=== PATIENT | female | born 1940 | race Caucasian/White ===

== ENCOUNTER → 2019-06-14 | Outpatient (REF) | payer MEDICARE, BC ==
[~2019-06-14] MED LIST: AMLO5TAB6 PO; ASPI81TA85 PO; BIMA01SOL OU; CALC1TAB27 PO; FERR32TA PO; HYDR25TAB PO; KETO2CR TOP; LEVO750T13 PO; PROT0.1O TOP; QUIN40TA26 PO; ROSU40TA4 PO; SYNT88TA2 PO; VITMTA PO
== END ==
LOC: M LAB LCGH 14:35
PROVIDERS: ATTEND Surgery
DX: K82.4 Cholesterolosis of gallbladder (principal)

== ENCOUNTER → 2019-06-14 | Outpatient (REF) | payer MEDICARE, BC | LOC: M LAB LCGH 12:47 | PROVIDERS: ATTEND Surgery | DX: K80.18 Calculus of gallbladder with other cholecystitis without obstruction (principal) ==

== ENCOUNTER 2019-06-15 11:30 | Inpatient (IN) | payer MEDICARE, BC ==
[~2019-06-15] VITALS: Ht 157.5 cm; Wt 76.5 kg
[2019-06-15 12:50] VITALS: BP 162/89
[2019-06-15] MEDS ORDERED: PROT0.1O TOP (13:24)
[2019-06-15] MEDS ORDERED: ROSU40TA4 PO (13:24)
[2019-06-15] MEDS ORDERED: VITMTA PO (13:24)
[2019-06-15] MEDS ORDERED: SYNT88TA2 PO (13:24)
[2019-06-15] MEDS ORDERED: KETO2CR TOP (13:24)
[2019-06-15] MEDS ORDERED: AMLO5TAB6 PO (13:24)
[2019-06-15] MEDS ORDERED: ASPI81TA85 PO (13:24)
[2019-06-15] MEDS ORDERED: BIMA01SOL OU (13:24)
[2019-06-15] MEDS ORDERED: QUIN40TA26 PO (13:24)
[2019-06-15] MEDS ORDERED: HYDR25TAB PO (13:24)
[2019-06-15] MEDS ORDERED: FERR32TA PO (13:24)
[2019-06-15] MEDS ORDERED: CALC1TAB27 PO (13:24)
[2019-06-15] MEDS ORDERED: LEVO750T13 PO (13:28)
[2019-06-15] MEDS ORDERED: NS 1,000 ML IV SCH (13:30)
--- NOTE | 2019-06-15 13:31 | HPEPDOC ---
[facility] Medical History & Physical Date of Admission Jun 15, 2019 Date of Service: Jun 15, 2019 History and Physical CHIEF COMPLAINT: pancreatic duct stone HISTORY OF PRESENT ILLNESS: 78 yo female transferred from [facility] for GI services for ERCP. Patient originally presented for abdominal pain, found to have cholecystitis and is now POD #1 for lap choly. Procedure revealed multiple pancreatic duct stones. Patient currently notes mild abdominal pain 3/10, slight worse at surgical site. Denies chest pain, shortness of breath, N/V/D. PAST MEDICAL HISTORY: HTN DM hypothyroidism HLD glaucoma PAST SURGICAL HISTORY: MELIDA lap choly - 06/14/19 ALLERGIES: Please see below. REVIEW OF SYSTEMS: Negative except as per HPI. HOME MEDICATIONS: Please see below. PHYSICAL EXAMINATION: VITAL SIGNS: See below General: NAD, lying comfortably in bed, in good spirits, family at bedside HEENT: NC/AT, EOMI, PERRL Lungs: CTA B/L Heart: +S1S2, RRR, systolic murmur Abd: soft, NT, +BS Ext: no edema Psych: AAOx3 LABORATORY DATA: See below. MICROBIOLOGY: Please see below. ASSESSMENT: 78 yo female originally presented at outside facility for abdominal pain, underwent lap choly 06/14/19, transferred to [facility] for ERCP for pancreatic duct stones. #pancreatic duct stones - GI c/s pending - NPO/IVF - plan for ERCP #HTN #DM #hypothyroidism #glaucoma #DVT prophylaxis Home Medications Scheduled Amlodipine Besylate (Amlodipine Besylate) 5 Mg Tablet, 5 MG PO DAILY Aspirin (Aspir 81) 81 Mg Tablet.dr, 81 MG PO 3XW MON/TUE/FRI WITH DINNER Bimatoprost (Lumigan) 0.01% 2.5ML Drops, 1 DROP OU QHS Calcium Carbonate/Vitamin D3 (Calcium 600-Vit D3 800 Tablet) 1 Each Tablet, 1 TAB PO DAILY TAKES AT 1600 Ferrous Gluconate (Ferrous Gluconate) 324 Mg Tablet, 324 MG PO DAILY Hydrochlorothiazide (Hydrochlorothiazide) 25 Mg Tablet, 25 MG PO DAILY Levothyroxine Sodium (Synthroid) 88 Mcg Tablet, 88 MCG PO QHS Multivitamins (Thera M Plus Tablet) 1 Each Tablet, 1 TAB PO DAILY TAKES AT 1600 Quinapril HCl (Quinapril HCl) 40 Mg Tablet, 40 MG PO QHS Rosuvastatin Calcium (Rosuvastatin Calcium) 40 Mg Tablet, 40 MG PO QHS Scheduled PRN Ketoconazole (Ketoconazole) 15 Gm Cream..g., 1 APLCT TOP DAILY PRN for ITCHING APPLY TO GROIN Tacrolimus (Protopic) 100 Gm Oint...g., 1 APLCT TOP DAILY PRN for FLARE APPLY TO NOSE/FOREHEAD Allergies Coded Allergies: atorvastatin (Verified Adverse Reaction, Unknown, INCREASED LIVER ENZYMES, GI UPSET, 06/15/19) A-FIB/CHADSVASC A-FIB History Current/History of A-Fib/PAF?: No Current PO Anticoag Therapy: No SUSIE ZAMBRANO MD Jun 15, 2019 13:31
[2019-06-15 14:00] VITALS: BP 159/88
[2019-06-15 15:06] LABS: HEMATOCRIT 36.2 % (36.0-47.0); HEMOGLOBIN 11.1 g/dl (12.0-15.5); MEAN CORPUSCULAR HEMOGLOBIN 28.8 pg (27.0-33.0); MEAN CORPUSCULAR HGB CONC 30.7 g/dl (32.0-36.5); PLATELET COUNT, AUTOMATED 162 10^3/uL (150-450); RED BLOOD COUNT 3.85 10^6/uL (4.00-5.40); WHITE BLOOD COUNT 7.1 10^3/uL (4.0-10.0)
[2019-06-15] MEDS ORDERED: MORPHINE 2 MG/ML 1ML VIAL (J2270) IV PRN (15:15)
[2019-06-15 15:17] LABS: INR 1.14; PROTHROMBIN TIME 14.3 SECONDS (11.8-14.0)
[2019-06-15 15:30] LABS: ALBUMIN 3.3 GM/DL (3.2-5.2); ALT/SGPT 248 U/L (12-78); BILIRUBIN,TOTAL 4.8 MG/DL (0.2-1.0); BLOOD UREA NITROGEN 7 MG/DL (7-18); CALCIUM LEVEL 8.4 MG/DL (8.8-10.2); CARBON DIOXIDE LEVEL 25 MEQ/L (21-32); CHLORIDE LEVEL 109 MEQ/L (98-107); CREATININE FOR GFR 0.66 MG/DL (0.55-1.30); GLOMERULAR FILTRATION RATE > 60.0 (>39); GLUCOSE, FASTING 149 MG/DL (70-100); POTASSIUM SERUM 3.3 MEQ/L (3.5-5.1); SODIUM LEVEL 140 MEQ/L (136-145); TOTAL PROTEIN 6.3 GM/DL (6.4-8.2)
[2019-06-15] MEDS ORDERED: ANEXSIA, NORCO 7.5MG/325MG TABLET(HYDROCODONE/APAP) PO PRN (15:45)
[2019-06-15] MEDS: ACETAMINOPHEN TAB 650MG DOSE (2X325MG) PO PRN (15:50)
[2019-06-15 19:36] LABS: BASO % 0.2 % (0.0-1.0); EOS # 0.1 10^3/uL (0.0-0.5); EOS % 0.7 % (0.0-3.0); HEMOGLOBIN 11.4 g/dl (12.0-15.5); LYMPH # 1.6 10^3/uL (1.5-5.0); MEAN CORPUSCULAR HEMOGLOBIN 28.6 pg (27.0-33.0); MEAN CORPUSCULAR HGB CONC 30.8 g/dl (32.0-36.5); MONO # 0.6 10^3/uL (0.0-0.8); NEUTROPHILS # 6.4 10^3/uL (1.5-8.5); NEUTROPHILS % 73.5 % (36.0-66.0); PLATELET COUNT, AUTOMATED 194 10^3/uL (150-450); RED BLOOD COUNT 3.98 10^6/uL (4.00-5.40); WHITE BLOOD COUNT 8.7 10^3/uL (4.0-10.0)
--- NOTE | 2019-06-15 19:48 | CR.PDOC ---
General Date of Consultation: Jun 15, 2019 Referring Provider: SUSIE ZAMBRANO MD Attending Physician: FRANTZ SENA MD Consultation Primary physician/ hospitalist: Dr. Zambrano Reason for consult: abnormal liver tests and possible CBD stones. HPI: 78 year old female patient with DM type II, HTN, was transferred from [facility] post cholecystectomy for suspected CBD stones. Patient reports her symptoms started 4 days ago with right upper quadrant, and epigastric and chest pain, after her obey ch, for which she went to [facility], where the pain continues, without any nausea or vomiting, subsequently she had Cholecystectomy on Tuesday and she is transferred today to [facility] for possible CBD stones. Patient upon examination, reports her abdominal pain is slightly better since started, but still ex periencing same type pain while moving, especially while getting out of bed. Patient denies any fever or chills but there was one documented fever ( transiently). Patient denies any nausea and vomiting. Pertinent negative GI symptoms: Patient denies fever, sick contacts, recent travel, nausea, vomiting, diarrhea, loss of appetite, early satiety or unintentional weight loss. No history of hematemesis, melena or hematochezia. Patient reports regular bowel movements. Review of Systems: GI: as stated above CVS: No chest pain, No palpitations, No leg swelling. RS: No Shortness of breath, No Wheezing, no cough [employer]: No dizziness, No motor weakness, No sensory problems Hematology: No bruising, No gum bleeding, Musculoskeletal: No joint pain, ambulating well. Skin: No rash : No hematuria, No burning sensation of the urine ENT: No ear discharge/ pain, No dysphagia. Eyes: No photophobia. Jaundice Home medications: reviewed. Antithrombotic agents - None Medical h/o: As above. Surgical h/o: None on abdomen. Social h/o: Alcohol - Denies , smoking - Denies , IVDA/ drugs - Denies . Family h/o of GI cancers - None Prior GI evaluations: None In [facility] Exam: Vitals: reviewed General: Alert and oriented x 3, not in distress HEENT: NO pallor, no icterus. Normal oropharynx, NO cervical lymph nodes. Chest: symmetric with bilateral clear air entry, CVS: S1, S2 heard, normal, no murmurs . Abdomen: non-distended, no surgical scars, soft, non-tender, no palpable masses, normal bowel sounds heard. Rectal exam: Patient refused / Deferred at this time in view of scheduled colonoscopy. Extremities: no pedal edema, pulses palpable. [employer]: no focal motor or sensory deficits. Moves all extremities Skin: no rash. Labs: reviewed. Impression: - Right upper quadrant pain and epigastric pain s/p cholecystectomy but worsening bilirubin levels and concern for retained CBD stones -- Needs further evaluation. Recommendations: - Patient educated about the test results, possible differential diagnoses and All questions answered. - Will obtain repeat labs and amylase and lipase. - Will obtain US abdomen limited of right upper quadrant. - Continue IV hydration -- Prefer ringers lactate. - Depending on clinical course and if any signs of sepsis, consider starting empiric antibiotics. - Will Keep NPO. - Patient is scheduled for ERCP tomorrow based on the above results. - The procedure, indications, risks (including pancreatitis, its complications, bleeding, perforation, infection, hypotension, respiratory depression, allergy, need for endotracheal intubation, surgery, colostomy, cardiac arrest, even ), benefits, limitations (e.g., missing a lesion), and all other alternatives (including no intervention) were explained to the patient, her family members in detail. Printed material provided. Patient verbalized understanding and agreed for the procedure. Plan of care discussed with patient and primary team. Patient verbalized understanding and agreed with the plan. Vital Signs/I&O Vital Signs Date Time Temp Pulse Resp B/P (MAP) Pulse Ox O2 Delivery O2 Flow Rate FiO2 06/15/19 16:41 99.0 06/15/19 14:00 84 17 159/88 (111) 95 Room Air Laboratory Data Labs 24H Laboratory Tests 2 06/15/19 14:52: Nucleated Red Blood Cells % (auto) 0.0, Prothrombin Time 14.3H, Prothromb Time International Ratio 1.14, Anion Gap 6L, Glomerular Filtration Rate > 60.0, Calcium Level 8.4L, Total Bilirubin 4.8H, Aspartate Amino Transf (AST/SGOT) 219H, Alanine Aminotransferase (ALT/SGPT) 248H, Alkaline Phosphatase 170H, Total Protein 6.3L, Albumin 3.3, Albumin/Globulin Ratio 1.10 06/15/19 19:24: Nucleated Red Blood Cells % (auto) 0.0, Immature Granulocyte % (Auto) 0.6, Neutrophils (%) (Auto) 73.5H, Lymphocytes (%) (Auto) 18.0L, Monocytes (%) (Auto) 7.0H, Eosinophils (%) (Auto) 0.7, Basophils (%) (Auto) 0.2, Neutrophils # (Auto) 6.4, Lymphocytes # (Auto) 1.6, Monocytes # (Auto) 0.6, Eosinophils # (Auto) 0.1, Basophils # (Auto) 0.0 CBC/BMP Laboratory Tests 06/15/19 14:52 06/15/19 19:24 Allergies Coded Allergies: atorvastatin (Verified Adverse Reaction, Intermediate, INCREASED LIVER ENZYMES, GI UPSET, 06/15/19) Home Medications Scheduled Amlodipine Besylate (Amlodipine Besylate) 5 Mg Tablet, 5 MG PO DAILY, (Reported) Aspirin (Aspir 81) 81 Mg Tablet.dr, 81 MG PO 3XW, (Reported) MON/WED/FRI WITH DINNER Bimatoprost (Lumigan) 0.01% 2.5ML Drops, 1 DROP OU QHS, (Reported) Calcium Carbonate/Vitamin D3 (Calcium 600-Vit D3 800 Tablet) 1 Each Tablet, 1 TAB PO DAILY, (Reported) TAKES AT 1600 Ferrous Gluconate (Ferrous Gluconate) 324 Mg Tablet, 324 MG PO DAILY, (Reported) Hydrochlorothiazide (Hydrochlorothiazide) 25 Mg Tablet, 25 MG PO DAILY, (Reported) Levofloxacin (Levofloxacin) 750 Mg Tablet, 750 MG PO DAILY, (Reported) STARTED AT [facility] Levothyroxine Sodium (Synthroid) 88 Mcg Tablet, 88 MCG PO QHS, (Reported) Multivitamins (Thera M Plus Tablet) 1 Each Tablet, 1 TAB PO DAILY, (Reported) TAKES AT 1600 Quinapril HCl (Quinapril HCl) 40 Mg Tablet, 40 MG PO QHS, (Reported) Rosuvastatin Calcium (Rosuvastatin Calcium) 40 Mg Tablet, 40 MG PO QHS, (Reported) Scheduled PRN Ketoconazole (Ketoconazole) 15 Gm Cream..g., 1 APLCT TOP DAILY PRN for ITCHING, (Reported) APPLY TO GROIN Tacrolimus (Protopic) 100 Gm Oint...g., 1 APLCT TOP DAILY PRN for FLARE, (Reported) APPLY TO NOSE/FOREHEAD FRANTZ SENA MD Jun 15, 2019 19:48
[2019-06-15 20:01] LABS: ALBUMIN 3.3 GM/DL (3.2-5.2); BILIRUBIN,DIRECT 4.3 MG/DL (0.0-0.2); TOTAL PROTEIN 7.2 GM/DL (6.4-8.2)
--- NOTE | 2019-06-15 20:11 | REPVR ---
PROCEDURE INFORMATION: Exam: US Abdomen Limited, Right Upper Quadrant Exam date and time: 06/15/2019 6:43 PM Age: 78 years old Clinical indication: Abdominal pain; Epigastric; Prior surgery; Surgery date: Post-operative (0-2 days); Surgery type: Cholecystectomy yesterday; Additional info: Evaluate for biliary tree TECHNIQUE: Imaging protocol: Real-time ultrasound of the abdomen with image documentation. Examination was focused on the right upper quadrant. COMPARISON: No relevant prior studies available. FINDINGS: Liver: The liver is heterogenous. Gallbladder: Status post cholecystectomy. Common bile duct: The common bile duct measures 6 mm. Pancreas: The visualized pancreatic head and body is unremarkable. Right kidney measures 11 x 4.6 x 4.6 cm Right kidney: 10.1 x 2.2 x 6.4 cm hypoechoic structure superior to right kidney which may represent a adrenal adenoma/nodule Other findings: . Limited examination due to bowel gas. IMPRESSION: 1. Limited examination due to overlying bowel gas. 2. Status post cholecystectomy. Electronically signed by: Lawrence Cool On 06/15/2019 20:10:49 PM
[2019-06-15] MEDS: ROSUVASTATIN 10 MG TAB (CRESTOR) PO SCH (20:47)
[2019-06-15] MEDS: QUINAPRIL 20 MG TAB PO SCH (20:49)
[2019-06-15] MEDS: LR 1,000 ML IV SCH (20:50)
[2019-06-15] MEDS: LATANOPROST 0.005% OPHTH SOLN 2.5 ML OU SCH (20:50)
[2019-06-15 22:00] VITALS: BP 157/86
[2019-06-16] VITALS (8 sets, daily range): BP systolic 102–164; BP diastolic 58–85
[2019-06-16] MEDS: LevoFLOXacin 750 MG TABLET PO SCH (06:38)
[2019-06-16 06:49] LABS: BASO % 0.1 % (0.0-1.0); EOS # 0.1 10^3/uL (0.0-0.5); EOS % 1.2 % (0.0-3.0); HEMATOCRIT 30.1 % (36.0-47.0); HEMOGLOBIN 9.7 g/dl (12.0-15.5); LYMPH # 1.3 10^3/uL (1.5-5.0); LYMPH % 19.6 % (24.0-44.0); MEAN CORPUSCULAR HEMOGLOBIN 29.8 pg (27.0-33.0); MEAN CORPUSCULAR HGB CONC 32.2 g/dl (32.0-36.5); MEAN CORPUSCULAR VOLUME 92.3 fl (80.0-96.0); MONO # 0.6 10^3/uL (0.0-0.8); MONO % 8.2 % (0.0-5.0); NEUTROPHILS # 4.7 10^3/uL (1.5-8.5); NEUTROPHILS % 70.5 % (36.0-66.0); PLATELET COUNT, AUTOMATED 160 10^3/uL (150-450); RED BLOOD COUNT 3.26 10^6/uL (4.00-5.40); WHITE BLOOD COUNT 6.7 10^3/uL (4.0-10.0)
[2019-06-16] MEDS: LR 1,000 ML IV SCH ×2 (06:50→14:53)
[2019-06-16 07:17] LABS: ALBUMIN 2.6 GM/DL (3.2-5.2); ALT/SGPT 194 U/L (12-78); AMYLASE 43 U/L (25-115); BILIRUBIN,DIRECT 4.2 MG/DL (0.0-0.2); BILIRUBIN,TOTAL 4.9 MG/DL (0.2-1.0); BLOOD UREA NITROGEN 5 MG/DL (7-18); CALCIUM LEVEL 8.4 MG/DL (8.8-10.2); CARBON DIOXIDE LEVEL 26 MEQ/L (21-32); CHLORIDE LEVEL 107 MEQ/L (98-107); CREATININE FOR GFR 0.56 MG/DL (0.55-1.30); GLOMERULAR FILTRATION RATE > 60.0 (>39); GLUCOSE, FASTING 127 MG/DL (70-100); LIPASE 97 U/L (73-393); SODIUM LEVEL 141 MEQ/L (136-145); TOTAL PROTEIN 6.1 GM/DL (6.4-8.2)
[2019-06-16] MEDS: hydroCHLOROthiazide 25 MG TAB PO SCH (09:38)
[2019-06-16] MEDS: MULTIVITAMINS/MINERALS THERAP 1 TAB PO SCH (09:38)
[2019-06-16] MEDS: FERROUS GLUCONATE 324 MG TAB PO SCH (09:38)
[2019-06-16] MEDS: amLODIPine 5 MG TAB PO SCH (09:38)
[2019-06-16] MEDS: KCL 10MEQ/100ML SWI (KRUN) 10 MEQ in IV 1 EA IV SCH ×2 (09:44→14:59)
[2019-06-16] MEDS ORDERED: ONDANSETRON 4MG/2ML VIAL (J2405) As Ordered ONE (11:57)
[2019-06-16] MEDS ORDERED: METOCLOPRAMIDE INJ 10MG/2ML VIAL (J2765) As Ordered ONE (11:57)
[2019-06-16] MEDS ORDERED: ROCURONIUM BROMIDE 50 MG/5 ML VIAL As Ordered ONE (11:57)
[2019-06-16] MEDS ORDERED: dexameTHASONE 4 MG/ML 1ML VIAL (J1100) As Ordered ONE (11:57)
[2019-06-16] MEDS ORDERED: LIDOCAINE 2% INJ 100 MG/5 ML SDV (FOR ANES.) As Ordered ONE (11:57)
[2019-06-16] MEDS ORDERED: propofoL 200 MG/20 ML VIAL As Ordered ONE (11:57)
[2019-06-16] MEDS ORDERED: SUGAMMADEX SODIUM 500 MG/5 ML VIAL (BRIDION) As Ordered ONE (11:57)
[2019-06-16] MEDS ORDERED: fentaNYL 100 MCG/2 ML INJECTION (J3010) As Ordered ONE (11:57)
[2019-06-16] MEDS ORDERED: MIDAZOLAM INJ 2 MG/2 ML VIAL (J2250) As Ordered ONE (11:57)
[2019-06-16] MEDS ORDERED: ISOVUE-300 61% 50ML VIAL (Q9967) XX ONE (12:15)
[2019-06-16] MEDS ORDERED: LABETALOL HCL 100 MG/20 ML VIAL As Ordered ONE (12:28)
[2019-06-16] MEDS ORDERED: PHENYLephrine HCL 500 MCG/5 ML (100MCG/ML) SYRINGE (J2370) As Ordered ONE (12:56)
[2019-06-16] MEDS ORDERED: LR 1,000 ML IV SCH (13:30)
[2019-06-16] MEDS ORDERED: fentaNYL 100 MCG/2 ML INJECTION (J3010) IV PRN (13:30)
[2019-06-16] MEDS ORDERED: PERCOCET 5MG/325MG TAB PO PRN (13:30)
[2019-06-16] MEDS ORDERED: ONDANSETRON 4MG/2ML VIAL (J2405) IV PRN ×2 (13:30→16:15)
[2019-06-16] MEDS ORDERED: LR 1,000 ML IV ONE ×2 (13:30→13:45)
--- NOTE | 2019-06-16 13:30 | ROOR ---
Patient Name: Alka Schmitz Procedure Date: 06/16/2019 11:46 AM Date of : 1940 Age: 78 Room: Main OR Gender: Female Note Status: Finalized Procedure: ERCP Indications: Bile duct stone(s), Jaundice, Elevated liver enzymes Providers: Ravi Franco MD Referring MD: 2. Inpatient 2. Inpatient, KENYON HERRERA MD, Juancarlos Armenta Md Requesting Provider: Medicines: Monitored Anesthesia Care Complications: No immediate complications. Procedure: Pre-Anesthesia Assessment: - Prior to the procedure, a History and Physical was performed, and patient medications and allergies were reviewed. The patient is competent. The risks and benefits of the procedure and the sedation options and risks were discussed with the patient. All questions were answered and informed consent was obtained. Patient identification and proposed procedure were verified by the physician, the nurse and the anesthesiologist in the procedure room. Mental Status Examination: alert and oriented. Airway Examination: normal oropharyngeal airway and neck mobility. Respiratory Examination: clear to auscultation. Prophylactic Antibiotics: The patient does not require prophylactic antibiotics. Prior Anticoagulants: The patient has taken no previous anticoagulant or antiplatelet agents. ASA Grade Assessment: III - A patient with severe systemic disease. After reviewing the risks and benefits, the patient was deemed in satisfactory condition to undergo the procedure. The anesthesia plan was to use monitored anesthesia care (MAC). Immediately prior to administration of medications, the patient was re-assessed for adequacy to receive sedatives. The heart rate, respiratory rate, oxygen saturations, blood pressure, adequacy of pulmonary ventilation, and response to care were monitored throughout the procedure. The physical status of the patient was re-assessed after the procedure. The Duodenoscope was introduced through the mouth, and advanced to the duodenum and used to inject contrast into the bile duct. The ERCP was accomplished without difficulty. The patient tolerated the procedure well. Findings: The life educator film was normal. The esophagus was successfully intubated under direct vision without detailed examination of the pharynx, larynx, and associated structures, and upper GI tract. The upper GI tract was grossly normal. The major papilla was bulging. A 0.035 inch x 260 cm straight Hydra Jagwire was passed into the biliary tree. The short-nosed traction sphincterotome was passed over the guidewire and the bile duct was then deeply cannulated. Contrast was injected. I personally interpreted the bile duct images. Ductal flow of contrast was adequate. Image quality was adequate. Contrast extended to the entire biliary tree. The lower third of the main bile duct contained filling defect(s) thought to be a stone and sludge. The lower third of the main bile duct contained stenosis preventing free flow of contrast even after sphicterotomy and balloons sweeps, unclear if retained stone or edema from sphicterotomy. Biliary sphincterotomy was made with a monofilament traction (standard) sphincterotome using ERBE electrocautery. The sphincterotomy oozed blood. The biliary tree was swept with a 9 mm balloon starting at the bifurcation. Sludge was swept from the duct. All stones were removed. One 8.5 Fr by 7 cm plastic stent with a single external flap and a single internal flap was placed into the common bile duct. Bile flowed through the stent. The stent was in good position. Occlusion cholangiogram at the end of the procedure did not show any residual filling defects. Pancreatic duct was neither cannulated nor opacified. Impression: - The major papilla appeared to be bulging. - A filling defect consistent with a stone and sludge was seen on the cholangiogram. - Biliary duct stricture were found in the lower third of the main bile duct. The stricture were indeterminate. - Choledocholithiasis was found. Complete removal was accomplished by biliary sphincterotomy and balloon extraction. - A biliary sphincterotomy was performed. - The biliary tree was swept. - One plastic stent was placed into the common bile duct. Recommendation: - The patient will be observed post-procedure, until all discharge criteria are met. - Patient has a contact number available for emergencies. The signs and symptoms of potential delayed complications were discussed with the patient. Return to normal activities tomorrow. Written discharge instructions were provided to the patient. - [facility] to [facility] for [facility]. - Avoid aspirin and nonsteroidal anti-inflammatory medicines. - Clear liquid diet today, then advance as tolerated to high fiber diet. - Continue present medications. - Repeat ERCP in 3 months to remove stent. - Return to GI clinic in [facility] (address [address], [address], [place] [address]) in 4 -- 6 weeks. Please call GI clinic @ [phone] for apppointment date and time. - Return to primary care physician. Ravi Franco MD Ravi Franco MD 06/16/2019 1:30:13 PM Electronically signed by Ravi Franco MD Number of Addenda: 0 Note Initiated On: 06/16/2019 11:46 AM Estimated Blood Loss: Estimated blood loss was minimal.
[2019-06-16] MEDS ORDERED: KCL 10MEQ IN STERILE WATER 100ML As Ordered ONE (14:57)
[2019-06-16] MEDS ORDERED: GLUCOSE 4 GM CHEW TABLET PO PRN (17:45)
[2019-06-16] MEDS ORDERED: GLUCAGON FOR INJ 1 MG VIAL (J1610) SC PRN (17:45)
[2019-06-16] MEDS ORDERED: DEXTROSE 50% 50 ML SYRINGE IV PRN (17:45)
[2019-06-16] MEDS ORDERED: HumaLOG INSULIN (NovoLOG) PER UNIT SC SCH (18:00)
--- NOTE | 2019-06-16 18:15 | IPNPDOC ---
Date Seen The patient was seen on 06/16/19. Progress Note SUBJECTIVE: Alka was seen and examined this morning while sitting in a chair. Her IV just infiltrated prior to our visit and was subsequently moved to a new location. She reports epigastric, periumbilical and lower abdominal discomfort but no significant pain. She denies any nausea or vomiting and is currently NPO in preparation for an ERCP today. Patient denies fever, chills, night sweats, confusion, headache, chest pain or pressure, or shortness of breath at this time. OBJECTIVE PHYSICAL EXAMINATION: VITAL SIGNS: Please see below. GENERAL: Pleasant and interactive, elderly female seated comfortably in a chair at time of exam. Appears stated age. Well-developed and well- nourished. A&O x3. Multiple family members present in the room. HEENT: Normocephalic, atraumatic. Anicteric and noninjected sclera. Trachea is midline. CARDIOVASCULAR: Rate regular rhythm. S1, S2 auscultated. There is a 2/6 systolic murmur heard best at the left parasternal second intercostal space. RESPIRATORY: Clear to auscultation bilaterally, with no wheezes, crackles or rhonchi appreciated. ABDOMINAL: Soft, nondistended. There are bandages in place over surgical incisions with no active oozing or bleeding. Tenderness of lower abdominal quadrants and epigastrium with localized voluntary guarding but no rigidity. EXTREMITIES: 1+ bilateral lower extremity edema. 2+ radial and posterior tibial pulses bilaterally. NEUROLOGICAL: Awake, alert and oriented 3. No focal neurological deficits a ppreciated. Responding appropriately to questions and commands. PSYCHOLOGICAL: Mood and affect appear appropriate. LABORATORY DATA, IMAGING STUDIES, MICROBIOLOGY: Please see below. Right upper quadrant limited abdominal ultrasound, 06/15/19: Limited examination due to overlying bowel gas. Status post cholecystectomy. Common bile duct measured 6mm. ASSESSMENT AND PLAN: This is a 78-year-old female who was transferred here from [facility], status post laparoscopic cholecystectomy on 06/13 with continued abdominal discomfort and possible presence of common bile duct stones in the setting of elevated transaminases and hyperbilirubinemia. Gastroenterology (Dr. Franco) was consulted and patient was subsequently scheduled for an ERCP on 06/16. #Possible retained CBD stones s/p cholecystectomy -Lap cholecystectomy on 06/13 at [facility] -Continued abdominal discomfort, elevated transaminases, and hyperbilirubinemia post-cholecystectomy -ERCP today for possible retained CBD stones -daily PO Levaquin has been ordered -Lactated Ringers running -Zofran prn #Elevated transaminases -AST 157, ALT 194 today; elevated, but are trending down -ERCP today for possible retained CBD stones -Continue to monitor on subsequent labs #Hyperbilirubinemia -tBili 4.9, dBili 4.2 today; elevated, but are trending down -ERCP today for possible retained CBD stones -Continue to monitor on subsequent labs #Normocytic normochromic anemia -Hbg 9.7, MCV 92%, MCHC 32.2 -Likely secondary to recent surgery, continued biliary tree pathology, NPO status with possible hemodilution from IV fluids -PO Fe administered this morning -Continue to monitor subsequent labs #Hypokalemia -sK+ 3.0 this morning -2 runs of 10mEq KCl ordered today with follow-up sMg and sK measurements ordered #Type II Diabetes Mellitus -NPO for upcoming ERCP today -Likely will initiate clear liquid diet post-ERCP and advance as tolerated to high fiber diet -Post-ERCP FSBS q6h and SSI will be ordered -Call qmp when pt is eating so sliding scale coverage can be adjusted #Hypothyroidism -c/w levothyroxine #Hypertension -c/w amlodipine, hydrochlorothiazide, and accupril #Glaucoma #DVT prophylaxis: Teds/antiembolitic stockings ordered upon admission DISPOSITION: Likely discharge tomorrow pending ERCP today and subsequent clinical improvement. VS, I&O, 24H, [facility] Vital Signs/I&O Vital Signs Date Time Temp Pulse Resp B/P (MAP) Pulse Ox O2 Delivery O2 Flow Rate FiO2 06/16/19 14:30 98.5 97 19 147/70 (95) 92 06/16/19 13:45 Room Air 06/16/19 13:15 2 I&O- Last 24 Hours up to 6 AM 06/16/19 06:00 Intake Total 515 ml Output Total 1300 ml Balance -785 ml Laboratory Data 24H LABS Laboratory Tests 2 06/15/19 19:24: Immature Granulocyte % (Auto) 0.6, Neutrophils (%) (Auto) 73.5H, Lymphocytes (%) (Auto) 18.0L, Monocytes (%) (Auto) 7.0H, Eosinophils (%) (Auto) 0.7, Basophils (%) (Auto) 0.2, Neutrophils # (Auto) 6.4, Lymphocytes # (Auto) 1.6, Monocytes # (Auto) 0.6, Eosinophils # (Auto) 0.1, Basophils # (Auto) 0.0, Nucleated Red Blood Cells % (auto) 0.0, Total Bilirubin 5.0H, Direct Bilirubin 4.3H, Aspartate Amino Transf (AST/SGOT) 214H, Alanine Aminotransferase (ALT/SGPT) 246H, Alkaline Phosphatase 184H, Total Protein 7.2, Albumin 3.3, Albumin/Globulin Ratio 0.85L, Amylase Level 49, Lipase 153 06/16/19 06:18: Immature Granulocyte % (Auto) 0.4, Neutrophils (%) (Auto) 70.5H, Lymphocytes (%) (Auto) 19.6L, Monocytes (%) (Auto) 8.2H, Eosinophils (%) (Auto) 1.2, Basophils (%) (Auto) 0.1, Neutrophils # (Auto) 4.7, Lymphocytes # (Auto) 1.3L, Monocytes # (Auto) 0.6, Eosinophils # (Auto) 0.1, Basophils # (Auto) 0.0, Nucleated Red Blood Cells % (auto) 0.0, Total Bilirubin 4.9H, Direct Bilirubin 4.2H, Aspartate Amino Transf (AST/SGOT) 157H, Alanine Aminotransferase (ALT/SGPT) 194H, Alkaline Phosphatase 166H, Total Protein 6.1L, Albumin 2.6#L, Albumin/Globulin Ratio 0.74L, Amylase Level 43, Lipase 97, Anion Gap 8, Glomerular Filtration Rate > 60.0, Calcium Level 8.4L, Magnesium Level 2.0 CBC/BMP Laboratory Tests 06/15/19 19:24 06/16/19 06:18 CHRISTIE MUNOZ D.O. Jun 16, 2019 18:15
[2019-06-16 18:27] LABS: MAGNESIUM LEVEL 1.8 MG/DL (1.8-2.4); POTASSIUM SERUM 3.4 MEQ/L (3.5-5.1)
[2019-06-16 19:05] LABS: BLOOD UREA NITROGEN 7 MG/DL (7-18); CREATININE FOR GFR 0.85 MG/DL (0.55-1.30); GLOMERULAR FILTRATION RATE > 60.0 (>39)
[2019-06-16 19:43] LABS: BASO % 0.1 % (0.0-1.0); HEMATOCRIT 36.5 % (36.0-47.0); HEMOGLOBIN 11.3 g/dl (12.0-15.5); LYMPH # 0.7 10^3/uL (1.5-5.0); LYMPH % 7.8 % (24.0-44.0); MEAN CORPUSCULAR HEMOGLOBIN 28.7 pg (27.0-33.0); MEAN CORPUSCULAR VOLUME 92.6 fl (80.0-96.0); MONO # 0.6 10^3/uL (0.0-0.8); MONO % 6.3 % (0.0-5.0); NEUTROPHILS # 7.4 10^3/uL (1.5-8.5); PLATELET COUNT, AUTOMATED 160 10^3/uL (150-450); RED BLOOD COUNT 3.94 10^6/uL (4.00-5.40); WHITE BLOOD COUNT 8.7 10^3/uL (4.0-10.0)
[2019-06-16 20:15] LABS: ALBUMIN 2.8 GM/DL (3.2-5.2); BILIRUBIN,DIRECT 4.3 MG/DL (0.0-0.2); BILIRUBIN,TOTAL 6.3 MG/DL (0.2-1.0); TOTAL PROTEIN 5.7 GM/DL (6.4-8.2)
[2019-06-16] MEDS: LATANOPROST 0.005% OPHTH SOLN 2.5 ML OU SCH (20:20)
[2019-06-16] MEDS: QUINAPRIL 20 MG TAB PO SCH (20:20)
[2019-06-16] MEDS: LEVOTHYROXINE 88MCG TABLET (0.088 MG) PO SCH (20:20)
[2019-06-16] MEDS: ROSUVASTATIN 10 MG TAB (CRESTOR) PO SCH (20:20)
[2019-06-16] MEDS: ACETAMINOPHEN TAB 650MG DOSE (2X325MG) PO PRN (20:22)
[2019-06-16] MEDS: SIMETHICONE 80 MG CHEW TAB PO PRN (20:43)
[2019-06-17 02:00] VITALS: BP 162/70
[2019-06-17] MEDS ORDERED: NORCO, ANEXSIA 5/325MG TABLET (HYDROcodone/ACETAMINOPHEN) PO ONE (02:00)
[2019-06-17] MEDS: SIMETHICONE 80 MG CHEW TAB PO PRN ×3 (02:12→14:44)
[2019-06-17] MEDS: LR 1,000 ML IV SCH ×3 (03:17→20:47)
[2019-06-17 06:00] VITALS: BP 172/84
--- NOTE | 2019-06-17 06:42 | REP ---
ERCP IN OR: 06/16/2019. Clinical history: Information regarding cholecystectomy 06/14/2019 and the patient stated to tech that some stones went into the common bile duct. The patient had right upper quadrant ultrasound yesterday. At that time the common duct was 6.1 mm. Findings: Fluoroscopic guidance provided to Dr. Franco of the gastroenterology division. Total of 66 images were provided. The endoscope was present and wire probe and catheter into the common duct and the right and left intrahepatic ducts. Contrast injected. Some air bubbles are seen on one of the injections later in the exam but there were a few lucencies in the common duct earlier that suggested possible retained stones. Catheter with balloon was then placed and the balloon inflated, catheter pulled back. Final image as are those of an indwelling stent placed in that common bile duct. Fluoroscopy time 51 seconds. Electronically Signed by Franck Segovia MD 06/17/2019 08:04 P
[2019-06-17] MEDS: LevoFLOXacin 750 MG TABLET PO SCH (07:05)
[2019-06-17] MEDS: PERCOCET 5MG/325MG TAB PO PRN ×3 (08:00→20:46)
[2019-06-17 08:11] LABS: HEMATOCRIT 35.2 % (36.0-47.0); HEMOGLOBIN 11.2 g/dl (12.0-15.5); MEAN CORPUSCULAR HGB CONC 31.8 g/dl (32.0-36.5); MEAN CORPUSCULAR VOLUME 91.2 fl (80.0-96.0); PLATELET COUNT, AUTOMATED 187 10^3/uL (150-450); RED BLOOD COUNT 3.86 10^6/uL (4.00-5.40); WHITE BLOOD COUNT 11.9 10^3/uL (4.0-10.0)
[2019-06-17] MEDS: FERROUS GLUCONATE 324 MG TAB PO SCH (08:17)
[2019-06-17] MEDS: MULTIVITAMINS/MINERALS THERAP 1 TAB PO SCH (08:17)
[2019-06-17] MEDS: hydroCHLOROthiazide 25 MG TAB PO SCH (08:17)
[2019-06-17] MEDS: amLODIPine 5 MG TAB PO SCH (08:18)
[2019-06-17 08:36] LABS: ALBUMIN 2.6 GM/DL (3.2-5.2); ALT/SGPT 177 U/L (12-78); BILIRUBIN,TOTAL 5.9 MG/DL (0.2-1.0); BLOOD UREA NITROGEN 10 MG/DL (7-18); CALCIUM LEVEL 8.5 MG/DL (8.8-10.2); CARBON DIOXIDE LEVEL 26 MEQ/L (21-32); CHLORIDE LEVEL 104 MEQ/L (98-107); CREATININE FOR GFR 0.68 MG/DL (0.55-1.30); GLOMERULAR FILTRATION RATE > 60.0 (>39); GLUCOSE, FASTING 199 MG/DL (70-100); POTASSIUM SERUM 3.1 MEQ/L (3.5-5.1); SODIUM LEVEL 140 MEQ/L (136-145); TOTAL PROTEIN 6.1 GM/DL (6.4-8.2)
[2019-06-17 10:00] VITALS: BP 163/84
--- NOTE | 2019-06-17 10:49 | IPNPDOC ---
Text Note Date of Service The patient was seen on 06/17/19. NOTE SUBJECTIVE: Patient seen and examined at bedside. Still complains of abdominal pain. Requesting for a change in her diet. No other medical complaints. No acute overnight events reported. OBJECTIVE: General: NAD, lying comfortably in bed HEENT: NC/AT Lungs: mild bibasilar crackles Heart: +S1S2, systolic murmur, RRR Abd: soft, mild RLQ tenderness, hypoactive BS Ext: no edema A/P: 78-year-old female who was transferred here from [facility], s/p laparoscopic cholecystectomy on 06/13 with continued abdominal discomfort and possible presence of CBD stones in the setting of elevated transaminases and hyperbilirubinemia, currently POD #1 for ERCP by GI. # CBD stones/sludge - s/p ERCP/stent - repeat ERCP in 3 months for stent removal - follow as per GI - assistance appreciated - pain control - PO Levaquin has been ordered -Lactated Ringers running -Zofran prn #Elevated transaminases - trending down -Continue to monitor #Hyperbilirubinemia - trending down -Continue to monitor #Normocytic normochromic anemia #Hypokalemia - continue to follow and replete as needed #Type II Diabetes Mellitus #Hypothyroidism -c/w levothyroxine #Hypertension -c/w amlodipine, hydrochlorothiazide, and accupril #Glaucoma #DVT prophylaxis: Teds/antiembolitic stockings ordered upon admission VS,Fishbone, I+O VS, Fishbone, I+O Laboratory Tests 06/16/19 17:56 06/16/19 19:32 06/17/19 07:43 Vital Signs Date Time Temp Pulse Resp B/P (MAP) Pulse Ox O2 Delivery O2 Flow Rate FiO2 06/17/19 10:00 98.9 89 17 163/84 (110) 93 06/16/19 22:00 Room Air 06/16/19 13:15 2 I&O- Last 24 Hours up to 6 AM 06/17/19 06:00 Intake Total 2050 ml Output Total 1125 ml Balance 925 ml SUSIE ZAMBRANO MD Jun 17, 2019 10:49
[2019-06-17 11:01] LABS: MAGNESIUM LEVEL 1.8 MG/DL (1.8-2.4)
[2019-06-17 14:00] VITALS: BP 163/55
[2019-06-17 16:05] LABS: BASO % 0.1 % (0.0-1.0); EOS % 0.1 % (0.0-3.0); HEMATOCRIT 32.1 % (36.0-47.0); HEMOGLOBIN 10.3 g/dl (12.0-15.5); LYMPH # 0.7 10^3/uL (1.5-5.0); LYMPH % 5.7 % (24.0-44.0); MEAN CORPUSCULAR HEMOGLOBIN 28.9 pg (27.0-33.0); MEAN CORPUSCULAR HGB CONC 32.1 g/dl (32.0-36.5); MEAN CORPUSCULAR VOLUME 89.9 fl (80.0-96.0); MONO # 0.7 10^3/uL (0.0-0.8); MONO % 5.4 % (0.0-5.0); NEUTROPHILS # 11.3 10^3/uL (1.5-8.5); NEUTROPHILS % 88.1 % (36.0-66.0); PLATELET COUNT, AUTOMATED 175 10^3/uL (150-450); RED BLOOD COUNT 3.57 10^6/uL (4.00-5.40); WHITE BLOOD COUNT 12.8 10^3/uL (4.0-10.0)
[2019-06-17 16:29] LABS: ALBUMIN 2.5 GM/DL (3.2-5.2); BILIRUBIN,DIRECT 4.3 MG/DL (0.0-0.2); BILIRUBIN,TOTAL 4.9 MG/DL (0.2-1.0); TOTAL PROTEIN 5.3 GM/DL (6.4-8.2)
[2019-06-17] MEDS: PIPERACILLIN/TAZOBACTAM SOD 3.375 GM in D5W MINI-BAG PLUS 50 ML IV SCH ×2 (17:46→23:14)
[2019-06-17] MEDS: MIRALAX *UNIT DOSE* 17GM PACKET PO SCH (18:24)
--- NOTE | 2019-06-17 19:21 | IPNPDOC ---
Date Seen The patient was seen on 06/17/19. Progress Note Interval history: Patient underwent ERCP, with sphincterotomy and CBD stent placement on 2019. Patient tolerated the procedure well. Patient reports ambulating yesterday in the hallway post procedure. Patient reports still having epigastric abdominal pain with some left-sided abdominal pain. Patient denies any nausea, vomiting. Today, patient reports feeling slightly bloated and not having any bowel movement. Patient is tolerating only liquids and has no appetite for solid food. Exam: Vitals: reviewed General: Alert and oriented x 3, mild distress from abdominal pain. Abdomen: non-distended, but bloated, prior laparoscopic surgery sites are tender, with slightly sliggish bowel sounds. Also noted ehcymosis in lower abdomen. No rigidity or guarding, no palpable masses. Labs: reviewed. Imaging: reviewed. Impression: -- Symptomatic gallstones with Cholecystectomy in [facility], with persistent upper abdominal pain with worsening trasaminitis, intra-operative cholangiogram showing CBD stones, was transferred to [facility], had ERCP with Sphincterotomy, ba jenniferon sweeps, removal of stones and sludge from GB, suspected distal stricture s/p CBD stent. currently slow improvement of Liver panel and persistent abdominal pain -- needs further evaluation. Recommendations: -- Patient educated about the test results, possible differential diagnoses and All questions answered. -- Will put patient back on clear liquid diet. or NPO ( if not tolerating diet.) -- Switched levofloxacin to Zosyn for now. -- Placed on miralax. -- Will rpeeat liver panel and CBC every 12 hours. Also obtain Lipase and amylase in next labs. -- Closely monitor clinical status. -- If persistent symptoms or worsening symptoms to consider CT abdomen. Plan of care discussed with patient and primary team. Patient verbalized understanding and agreed with the plan. VS, I&O, 24H, Fishbone Vital Signs/I&O Vital Signs Date Time Temp Pulse Resp B/P (MAP) Pulse Ox O2 Delivery O2 Flow Rate FiO2 06/17/19 15:14 18 06/17/19 14:44 Room Air 06/17/19 14:00 98.9 101 163/55 (91) 94 06/16/19 13:15 2 I&O- Last 24 Hours up to 6 AM 06/17/19 06:00 Intake Total 2050 ml Output Total 1125 ml Balance 925 ml Laboratory Data 24H LABS Laboratory Tests 2 06/16/19 19:32: Immature Granulocyte % (Auto) 0.8, Neutrophils (%) (Auto) 85.0H, Lymphocytes (%) (Auto) 7.8L, Monocytes (%) (Auto) 6.3H, Eosinophils (%) (Auto) 0.0, Basophils (%) (Auto) 0.1, Neutrophils # (Auto) 7.4, Lymphocytes # (Auto) 0.7L, Monocytes # (Auto) 0.6, Eosinophils # (Auto) 0.0, Basophils # (Auto) 0.0, Nucleated Red Blood Cells % (auto) 0.0, Total Bilirubin 6.3H, Direct Bilirubin 4.3H, Aspartate Amino Transf (AST/SGOT) 180H, Alanine Aminotransferase (ALT/SGPT) 192H, Alkaline Phosphatase 184H, Total Protein 5.7L, Albumin 2.8L, Albumin/Globulin Ratio 0.97L 06/16/19 20:39: Bedside Glucose (Misc Panel) 188H 06/17/19 06:22: Bedside Glucose (Misc Panel) 186H 06/17/19 07:43: Nucleated Red Blood Cells % (auto) 0.0, Total Bilirubin 5.9H, Aspartate Amino Transf (AST/SGOT) 151H, Alanine Aminotransferase (ALT/SGPT) 177H, Alkaline Phosphatase 180H, Total Protein 6.1L, Albumin 2.6L, Albumin/Globulin Ratio 0.74L, Anion Gap 10, Glomerular Filtration Rate > 60.0, Calcium Level 8.5L, Magnesium Level 1.8 06/17/19 15:48: Immature Granulocyte % (Auto) 0.6, Neutrophils (%) (Auto) 88.1H, Lymphocytes (%) (Auto) 5.7L, Monocytes (%) (Auto) 5.4H, Eosinophils (%) (Auto) 0.1, Basophils (%) (Auto) 0.1, Neutrophils # (Auto) 11.3H, Lymphocytes # (Auto) 0.7L, Monocytes # (Auto) 0.7, Eosinophils # (Auto) 0.0, Basophils # (Auto) 0.0, Nucleated Red Blood Cells % (auto) 0.0, Total Bilirubin 4.9H, Direct Bilirubin 4.3H, Aspartate Amino Transf (AST/SGOT) 116H, Alanine Aminotransferase (ALT/SGPT) 156H, Alkaline Phosphatase 168H, Total Protein 5.3L, Albumin 2.5L, Albumin/Globulin Ratio 0.89L CBC/BMP Laboratory Tests 06/16/19 19:32 06/17/19 07:43 06/17/19 15:48 FRANTZ SENA MD Jun 17, 2019 19:21
[2019-06-17] MEDS: ROSUVASTATIN 10 MG TAB (CRESTOR) PO SCH (20:43)
[2019-06-17] MEDS: QUINAPRIL 20 MG TAB PO SCH (20:44)
[2019-06-17] MEDS: LEVOTHYROXINE 88MCG TABLET (0.088 MG) PO SCH (20:45)
[2019-06-17] MEDS: LATANOPROST 0.005% OPHTH SOLN 2.5 ML OU SCH (20:47)
[2019-06-17 22:00] VITALS: BP 156/72
[2019-06-18] MEDS: PERCOCET 5MG/325MG TAB PO PRN ×4 (03:38→18:08)
[2019-06-18] MEDS: PIPERACILLIN/TAZOBACTAM SOD 3.375 GM in D5W MINI-BAG PLUS 50 ML IV SCH ×4 (05:29→23:32)
[2019-06-18 05:59] LABS: HEMATOCRIT 29.6 % (36.0-47.0); HEMOGLOBIN 9.7 g/dl (12.0-15.5); MEAN CORPUSCULAR HEMOGLOBIN 29.5 pg (27.0-33.0); MEAN CORPUSCULAR HGB CONC 32.8 g/dl (32.0-36.5); PLATELET COUNT, AUTOMATED 156 10^3/uL (150-450); RED BLOOD COUNT 3.29 10^6/uL (4.00-5.40); WHITE BLOOD COUNT 13.3 10^3/uL (4.0-10.0)
[2019-06-18 06:00] VITALS: BP 138/66
[2019-06-18 06:33] LABS: ALBUMIN 2.2 GM/DL (3.2-5.2); ALT/SGPT 120 U/L (12-78); BILIRUBIN,TOTAL 4.1 MG/DL (0.2-1.0); BLOOD UREA NITROGEN 6 MG/DL (7-18); CALCIUM LEVEL 8.4 MG/DL (8.8-10.2); CARBON DIOXIDE LEVEL 31 MEQ/L (21-32); CHLORIDE LEVEL 97 MEQ/L (98-107); CREATININE FOR GFR 0.56 MG/DL (0.55-1.30); GLOMERULAR FILTRATION RATE > 60.0 (>39); GLUCOSE, FASTING 168 MG/DL (70-100); POTASSIUM SERUM 2.5 MEQ/L (3.5-5.1); SODIUM LEVEL 135 MEQ/L (136-145); TOTAL PROTEIN 5.5 GM/DL (6.4-8.2)
[2019-06-18] MEDS ORDERED: POTASSIUM CHLORIDE 10 MEQ SR TABLET PO SCH (09:00)
[2019-06-18] MEDS: MIRALAX *UNIT DOSE* 17GM PACKET PO SCH (09:15)
[2019-06-18] MEDS: FERROUS GLUCONATE 324 MG TAB PO SCH (09:15)
[2019-06-18] MEDS: hydroCHLOROthiazide 25 MG TAB PO SCH (09:15)
[2019-06-18] MEDS: MULTIVITAMINS/MINERALS THERAP 1 TAB PO SCH (09:15)
[2019-06-18] MEDS: amLODIPine 5 MG TAB PO SCH (09:16)
[2019-06-18 10:00] VITALS: BP 148/78
[2019-06-18 10:38] LABS: MAGNESIUM LEVEL 1.8 MG/DL (1.8-2.4)
[2019-06-18] MEDS: GASTROGRAFIN SOLUTION 30ML PO SCH ×2 (12:07→12:52)
[2019-06-18] MEDS ORDERED: ISOVUE-370 76% 100ML VIAL (Q9967) As Ordered ONE (12:51)
--- NOTE | 2019-06-18 13:46 | IPNPDOC ---
Text Note Date of Service The patient was seen on 06/18/19. NOTE SUBJECTIVE: Patient was seen at bedside today in the presence of her daughter. Pt continues to complain of achy epigastric abdominal pain radiating to left upper and lower quadrants of the abdomen. She states that her pain medication regimen brings her pain down to 5/10. She has however tolerated a liquid diet without nausea or vomiting. She has been passing flatus but not stool. She has been ambulating regularly and using her incentive spirometer. She denies chest pain, dyspnea, cough, and difficulty urinating. OBJECTIVE: VITALS: Please see below. GENERAL: Pt appears stated age and is lying in bed in no acute distress. HEENT: Normocephalic, atraumatic. CARDIOVASCULAR: Regular rhythm. Tachycardic. Systolic crescendo decrescendo murmur auscultated. No rubs or gallops. PULMONARY: Clear to auscultation b/l. No wheezes, rales, or rhonchi. ABDOMEN: Laparoscopic incision wounds (3) present, covered with transparent bandaging, no notable erythema or drainage. Lower abdominal bruising present bilaterally and diffusely. No rashes or bumps. Abdomen diffusely distended. Bowel sounds present in all 4 quadrants. Tympany and tenderness present in bilateral upper and left lower quadrants. No tympany or tenderness in right lower quadrant. No perceptible organomegaly. EXTREMITIES: No peripheral edema. Pulses 2+ b/l in upper and lower extremities. PSYCHIATRIC: Pt is calm and cooperative. Full affect. Pt answers questions appropriately, but appears slightly confused. Her daughter suggests that this may be due to her pain medication, having witnessed slight confusion after previous doses. ASSESSMENT: Pt is a 78-year-old white female with a significant past medical history of hypertension, diabetes mellitus type 2, hypothyroidism, hyperlipidemia, and glaucoma who presented to [facility] as a direct admit s/p laparoscopic cholecystectomy for an ERCP and has been admitted for evaluation and treatment of continuing abdominal pain. PLAN: 1. Common bile duct stones/sludge - Gastroenterology consult by Ravi Franco MD was requested, and his assistance is appreciated. - S/p laparoscopic cholecystectomy 06/13/2019 at [facility] (POD #5), ERCP with stenting by Dr. Franco 06/16/2019 at [facility] (POD #2) - Pt continues to have epigastric abdominal pain radiating to left upper and lower quadrants of the abdomen. Her abdomen continues to be tympanic in b/l upper quadrants and lower left quadrant. Abdomen generally distended. She has however tolerated a liquid diet without nausea. She has been passing flatus but not stool. She has been ambulating regularly. Pt is tachycardic. - Repeat CT abdomen and pelvis with contrast ordered for further workup of persistent abdominal pain. - Continue clear liquids diet with hydration by IV lactated Ringer's. Empiric antibiotic coverage with piperacillin/tazobactam will continue. - Upon discharge, pt will require GI follow-up outpatient in 4-6 weeks as well as repeat ERCP for stent removal in 3 months. 2. Normocytic normochromic anemia, possibly secondary to iron deficiency anemia - Ordered reticulocyte count, iron, TIBC, ferritin. - Will monitor CBC. 3. Hypokalemia - Low at 2.5 this morning and trending down. Ordered scheduled potassium chloride 40 meq PO BID. Continue to monitor. 4. Elevated transaminases, resolving - Trending down, continue to monitor q12h liver profile for another 24-48 hours. 5. Hyperbilirubinemia, resolving - Trending down, continue to monitor q12h liver profile for another 24-48 hours. 6. Diabetes mellitus type 2 - Fasting glucose 168 this morning. - Continue sliding scale insulin. 7. Hypothyroidism - Continue home levothyroxine. 8. Hypertension - Continue home amlodipine, chlorothiazide, quinapril. 9. Glaucoma - Defer to outpatient management. 10. Crescendo decrescendo murmur, likely chronic aortic sclerosis/stenosis - Pt states that she has never been told that she has a murmur by her primary care physician. However, this is unlikely to be an acute development. - Defer to outpatient management. 11. DVT prophylaxis: TEDs DISPOSITION: Discharge pending further workup of abdominal pain. VS,Fishbone, I+O VS, Fishbone, I+O Laboratory Tests 06/17/19 15:48 06/18/19 05:28 Vital Signs Date Time Temp Pulse Resp B/P (MAP) Pulse Ox O2 Delivery O2 Flow Rate FiO2 06/18/19 10:00 98.9 102 20 148/78 (101) 95 Room Air 06/16/19 13:15 2 I&O- Last 24 Hours up to 6 AM 06/18/19 06:00 Intake Total 1300 ml Output Total 1350 ml Balance -50 ml GME ATTESTATION GME ATTESTATION My faculty preceptor for this patient encounter was physically present during the encounter and was fully available. All aspects of the patient interview, examination, medical decision making process, and medical care plan development were reviewed and approved by the faculty preceptor. The faculty preceptor is aware and concurs with the plan as stated in the body of this note and will attest to such by his/her cosignature. STEPHANI GIPSON OMS-III Jun 18, 2019 13:46
[2019-06-18 14:00] VITALS: BP 145/75
--- NOTE | 2019-06-18 15:38 | REP ---
CT of the abdomen and pelvis with IV contrast and with bowel contrast for persistent abdominal pain post cholecystectomy: There are no comparison CT studies. The visualized lung vogel demonstrate a small left pleural effusion and dependent atelectasis but are otherwise unremarkable. The hepatic parenchyma is homogeneous. The gallbladder surgically absent. There are surgical clips in the gallbladder fossa. There is a small volume of fluid and a tiny air bubble in the gallbladder fossa. There is a common biliary duct stent terminating at the junction of the descending and transverse portions of the duodenum. There are surgical staple lines in the midline of the anterior abdominal wall just inferior to the umbilicus and in the abdominal right upper quadrant. There is subcutaneous emphysema in the anterior abdominal wall in the right upper quadrant. There are a few tiny bubbles of air within the abdominal wall in the right upper quadrant. No pneumoperitoneum is identified. There is very mild peripancreatic induration suggestive of mild pancreatitis. There is no pancreatic duct dilatation or pseudocyst. There is thickening of the Gerota's fascia on the left, also compatible with pancreatitis. The spleen is unremarkable. The adrenals and kidneys are unremarkable. Abdominal aorta are unremarkable except for calcified atheroma. There is no periaortic adenopathy or mass. There is no bowel distension or obstruction. Pelvis: There is no ascites or adenopathy. There is a hysterectomy. The bladder is unremarkable. The pelvic bowel loops are unremarkable. Impression: There are postsurgical changes in the right upper quadrant abdominal wall as described. There is a common biliary duct stent. There is a small volume of fluid and a few bubbles of air in the gallbladder fossa. There is a small left pleural effusion. There is mild inflammation surrounding the pancreas and thickening of left Gerota's fascia compatible with mild pancreatitis. There is no ascites. No pneumoperitoneum. No bowel distension or obstruction. Hysterectomy. Electronically Signed by Jez Martínez MD 06/18/2019 03:30 P
[2019-06-18 15:48] LABS: HEMATOCRIT 31.5 % (36.0-47.0); HEMOGLOBIN 10.1 g/dl (12.0-15.5); MEAN CORPUSCULAR HEMOGLOBIN 29.4 pg (27.0-33.0); MEAN CORPUSCULAR HGB CONC 32.1 g/dl (32.0-36.5); MEAN CORPUSCULAR VOLUME 91.6 fl (80.0-96.0); PLATELET COUNT, AUTOMATED 165 10^3/uL (150-450); RED BLOOD COUNT 3.44 10^6/uL (4.00-5.40); WHITE BLOOD COUNT 11.6 10^3/uL (4.0-10.0)
[2019-06-18 16:21] LABS: ALBUMIN 2.3 GM/DL (3.2-5.2); ALT/SGPT 115 U/L (12-78); BILIRUBIN,DIRECT 4.3 MG/DL (0.0-0.2); BLOOD UREA NITROGEN 6 MG/DL (7-18); CALCIUM LEVEL 8.2 MG/DL (8.8-10.2); CARBON DIOXIDE LEVEL 31 MEQ/L (21-32); CHLORIDE LEVEL 95 MEQ/L (98-107); CREATININE FOR GFR 0.68 MG/DL (0.55-1.30); FERRITIN 84 NG/ML (8-252); GLOMERULAR FILTRATION RATE > 60.0 (>39); GLUCOSE, FASTING 157 MG/DL (70-100); IRON (FE) 20 UG/DL (50-170); PERCENT SATURATION 6.7 % (13.2-45.0); POTASSIUM SERUM 2.9 MEQ/L (3.5-5.1); SODIUM LEVEL 136 MEQ/L (136-145); TOTAL IRON BINDING CAPACITY 298 UG/DL (250-450); TOTAL PROTEIN 5.3 GM/DL (6.4-8.2)
[2019-06-18] MEDS ORDERED: POTASSIUM CHLORIDE 10 MEQ SR TABLET PO ONE (17:30)
[2019-06-18] MEDS: LR 1,000 ML IV SCH (17:31)
[2019-06-18] MEDS ORDERED: NS 500 ML IV ONE (17:45)
[2019-06-18 17:49] LABS: MAGNESIUM LEVEL 1.9 MG/DL (1.8-2.4)
[2019-06-18 18:00] VITALS: BP 145/73
[2019-06-18] MEDS: LEVOTHYROXINE 88MCG TABLET (0.088 MG) PO SCH (20:45)
[2019-06-18] MEDS: ROSUVASTATIN 10 MG TAB (CRESTOR) PO SCH (20:45)
[2019-06-18] MEDS: QUINAPRIL 20 MG TAB PO SCH (20:46)
[2019-06-18] MEDS: LATANOPROST 0.005% OPHTH SOLN 2.5 ML OU SCH (20:47)
[2019-06-18 22:00] VITALS: BP 139/1
[2019-06-19] MEDS: PERCOCET 5MG/325MG TAB PO PRN ×3 (05:57→18:31)
[2019-06-19 06:00] VITALS: BP 134/74
[2019-06-19 06:05] LABS: HEMATOCRIT 29.8 % (36.0-47.0); HEMOGLOBIN 9.8 g/dl (12.0-15.5); MEAN CORPUSCULAR HEMOGLOBIN 29.6 pg (27.0-33.0); MEAN CORPUSCULAR HGB CONC 32.9 g/dl (32.0-36.5); PLATELET COUNT, AUTOMATED 154 10^3/uL (150-450); RED BLOOD COUNT 3.31 10^6/uL (4.00-5.40); WHITE BLOOD COUNT 12.3 10^3/uL (4.0-10.0)
[2019-06-19 06:33] LABS: ALBUMIN 2.1 GM/DL (3.2-5.2); ALT/SGPT 90 U/L (12-78); BILIRUBIN,TOTAL 3.2 MG/DL (0.2-1.0); BLOOD UREA NITROGEN 5 MG/DL (7-18); CARBON DIOXIDE LEVEL 34 MEQ/L (21-32); CHLORIDE LEVEL 98 MEQ/L (98-107); CREATININE FOR GFR 0.57 MG/DL (0.55-1.30); GLOMERULAR FILTRATION RATE > 60.0 (>39); GLUCOSE, FASTING 136 MG/DL (70-100); MAGNESIUM LEVEL 1.9 MG/DL (1.8-2.4); POTASSIUM SERUM 2.7 MEQ/L (3.5-5.1); SODIUM LEVEL 137 MEQ/L (136-145); TOTAL PROTEIN 5.6 GM/DL (6.4-8.2)
[2019-06-19] MEDS: PIPERACILLIN/TAZOBACTAM SOD 3.375 GM in D5W MINI-BAG PLUS 50 ML IV SCH ×4 (06:40→23:10)
[2019-06-19] MEDS ORDERED: POTASSIUM CHLORIDE 10 MEQ SR TABLET PO ONE (08:00)
[2019-06-19] MEDS ORDERED: POTASSIUM CHLORIDE 10 MEQ SR TABLET PO SCH (09:00)
--- NOTE | 2019-06-19 09:44 | IPNPDOC ---
Text Note Date of Service The patient was seen on 06/19/19. NOTE SUBJECTIVE: Patient was seen at bedside today in the presence of her daughter. She states that she was in pain when she woke up at 0600 this morning, but that her pain is gone after one dose of [place]. Her pain had previously decreased after medication, but not disappeared. She had one episode of nausea and vomiting last night after taking her potassium supplement, but has otherwise tolerated a liquid diet. She continues to pass flatus and was able to pass stool last night. She has been ambulating regularly and using her incentive spirometer. She denies chest pain, dyspnea, cough, and difficulty urinating. OBJECTIVE: VITALS: Please see below. GENERAL: Pt appears stated age and is lying in bed in no acute distress. HEENT: Normocephalic, atraumatic. CARDIOVASCULAR: Regular rhythm. Tachycardic. Systolic crescendo decrescendo murmur auscultated. No rubs or gallops. PULMONARY: Clear to auscultation b/l. No wheezes, rales, or rhonchi. ABDOMEN: Laparoscopic incision wounds (3) present, covered with transparent bandaging, no notable erythema or drainage. Lower abdominal bruising present bilaterally and diffusely. No rashes or bumps. Abdomen diffusely distended. [place] el sounds present in all 4 quadrants. Tympany present in bilateral upper and left lower quadrants. No tympany in right lower quadrant. No tenderness in any of the 4 quadrants. No perceptible organomegaly. EXTREMITIES: No peripheral edema. Pulses 2+ b/l in upper and lower extremities. PSYCHIATRIC: Pt is calm and cooperative. Full affect. Pt answers questions appropriately. IMAGING: CT abdomen and pelvis with IV and bowel contrast, performed yesterday afternoon, from report: "There are postsurgical changes in the right upper quadrant abdominal wall as described. There is a common biliary duct stent. There is a small volume of fluid and a few bubbles of air in the gallbladder fossa. There is a small left pleural effusion. There is mild inflammation surrounding the pancreas and thickening of left Gerota's fascia compatible with mild pancreatitis. There is no ascites. No pneumoperitoneum. No bowel distension or obstruction. Hysterectomy." ASSESSMENT: Pt is a 78-year-old white female with a significant past medical history of hypertension, diabetes mellitus type 2, hypothyroidism, hype rlipidemia, and glaucoma who presented to [facility] as a direct admit s/p laparoscopic cholecystectomy for an ERCP and has been admitted for evaluation and treatment of continuing abdominal pain. PLAN: 1. Common bile duct stones/sludge with possible acute cholangitis. - S/p laparoscopic cholecystectomy 06/13/2019 at [facility] (POD #6), ERCP with stenting by Dr. Franco 06/16/2019 at [facility] (POD #3) -initially had epigastric abdominal pain radiating to left upper and lower quadrants of the abdomen after ERCP. -c/w Zosyn (Day 3) for total of 10 days of antibiotics therapy (will refer to GI for duration of therapy) - Upon discharge, pt will require GI follow-up outpatient in 4-6 weeks as well as repeat ERCP for stent removal in 3 months. - Advance her diet today and monitor for intolerance. 2. Pancreatitis secondary to ERCP -initially had epigastric abdominal pain radiating to left upper and lower quadrants of the abdomen after ERCP. -CT abdomen s/p ERCP showed mild pancreatitis, -c/w IV fluids, and pain management. - Advance to full liquids diet and continue to advance as tolerated. 3. Anemia of chronic disease - Reticulocyte count high, consistent with appropriate marrow response to anemia. Iron (20) and transferrin saturation (6.7%) low with TIBC and ferritin within normal limits. - Continue to monitor CBC. 4. Hypokalemia - Low at 2.7 this morning. Discontinue oral potassium and replace lactated Ringer's IV with KCl 40meq in normal saline IV. Continue to monitor. 5. Elevated transaminases, resolving - Trending down, continue to monitor q12h liver profile for another 24-48 hours. 6. Hyperbilirubinemia, resolving - Trending down, continue to monitor q12h liver profile for another 24-48 hours. 7. Diabetes mellitus type 2 - Fasting glucose 136 this morning. - Continue sliding scale insulin. 8. Hypothyroidism - Continue home levothyroxine. 9. Hypertension - Continue home amlodipine, chlorothiazide, quinapril. 10. Glaucoma - Defer to outpatient management. 11. Crescendo decrescendo murmur, likely chronic aortic sclerosis/stenosis - Pt states that she has never been told that she has a murmur by her primary care physician. However, this is unlikely to be an acute development. - Defer to outpatient management. DVT prophylaxis: TEDs DISPOSITION: Discharge in 24-48 hours if tolerating diet and symptomatology continue to improve. VS,Fishbone, I+O VS, Fishbone, I+O Laboratory Tests 06/18/19 14:47 06/19/19 05:28 Vital Signs Date Time Temp Pulse Resp B/P (MAP) Pulse Ox O2 Delivery O2 Flow Rate FiO2 06/19/19 06:00 98.5 91 17 134/74 (94) 92 06/19/19 05:57 Room Air 06/16/19 13:15 2 I&O- Last 24 Hours up to 6 AM 06/19/19 06:00 Intake Total 3790 ml Output Total 400 ml Balance 3390 ml GME ATTESTATION GME ATTESTATION My faculty preceptor for this patient encounter was physically present during the encounter and was fully available. All aspects of the patient interview, examination, medical decision making process, and medical care plan development were reviewed and approved by the faculty preceptor. The faculty preceptor is aware and concurs with the plan as stated in the body of this note and will attest to such by his/her cosignature. STEPHANI GIPSON OMS-III Jun 19, 2019 08:18 DIYA ROBERTS DO Jun 20, 2019 05:54
[2019-06-19] MEDS: FERROUS GLUCONATE 324 MG TAB PO SCH (10:02)
[2019-06-19] MEDS: MULTIVITAMINS/MINERALS THERAP 1 TAB PO SCH (10:03)
[2019-06-19] MEDS: amLODIPine 5 MG TAB PO SCH (10:03)
[2019-06-19] MEDS: hydroCHLOROthiazide 25 MG TAB PO SCH (10:03)
[2019-06-19] MEDS ORDERED: KCL 20MEQ IN 0.45NS 1000ML 1,000 ML IV SCH (15:00)
[2019-06-19 15:23] LABS: BASO % 0.2 % (0.0-1.0); EOS # 0.1 10^3/uL (0.0-0.5); EOS % 0.9 % (0.0-3.0); HEMATOCRIT 29.9 % (36.0-47.0); HEMOGLOBIN 9.5 g/dl (12.0-15.5); LYMPH # 1.1 10^3/uL (1.5-5.0); MEAN CORPUSCULAR HEMOGLOBIN 29.1 pg (27.0-33.0); MEAN CORPUSCULAR HGB CONC 31.8 g/dl (32.0-36.5); MEAN CORPUSCULAR VOLUME 91.7 fl (80.0-96.0); MONO # 0.5 10^3/uL (0.0-0.8); MONO % 4.8 % (0.0-5.0); NEUTROPHILS # 8.8 10^3/uL (1.5-8.5); NEUTROPHILS % 82.6 % (36.0-66.0); PLATELET COUNT, AUTOMATED 146 10^3/uL (150-450); RED BLOOD COUNT 3.26 10^6/uL (4.00-5.40); WHITE BLOOD COUNT 10.7 10^3/uL (4.0-10.0)
[2019-06-19 15:52] LABS: ALBUMIN 2.1 GM/DL (3.2-5.2); ALT/SGPT 85 U/L (12-78); BILIRUBIN,DIRECT 2.6 MG/DL (0.0-0.2); BILIRUBIN,TOTAL 3.1 MG/DL (0.2-1.0); BLOOD UREA NITROGEN 6 MG/DL (7-18); CALCIUM LEVEL 8.1 MG/DL (8.8-10.2); CARBON DIOXIDE LEVEL 34 MEQ/L (21-32); CHLORIDE LEVEL 95 MEQ/L (98-107); CREATININE FOR GFR 0.73 MG/DL (0.55-1.30); GLOMERULAR FILTRATION RATE > 60.0 (>39); GLUCOSE, FASTING 205 MG/DL (70-100); POTASSIUM SERUM 2.7 MEQ/L (3.5-5.1); SODIUM LEVEL 134 MEQ/L (136-145)
[2019-06-19 18:00] VITALS: BP 130/65
[2019-06-19] MEDS: KCL 40MEQ in NS 1000ML 1,000 ML IV SCH (18:30)
[2019-06-19] MEDS: ROSUVASTATIN 10 MG TAB (CRESTOR) PO SCH (20:47)
[2019-06-19] MEDS: LEVOTHYROXINE 88MCG TABLET (0.088 MG) PO SCH (20:47)
[2019-06-19] MEDS: QUINAPRIL 20 MG TAB PO SCH (20:48)
[2019-06-19] MEDS: LATANOPROST 0.005% OPHTH SOLN 2.5 ML OU SCH (20:49)
[2019-06-19 22:00] VITALS: BP 114/63
--- NOTE | 2019-06-19 22:37 | IPNPDOC ---
Date Seen The patient was seen on 06/19/19. Progress Note Interval history: Patient is tolerating liquid diet well and having bowel movements. Patient had CT abdomen yesterday - reviewed with radiologist. Patient was put on zosyn for sepsis. Electrolytes are being corrected by the primary team. Patient is reporting improvement in abdominal pain and wants to try solid foods. Her appetite is better but not completely to normal. Exam: Vitals: reviewed General: Alert and oriented x 3, not in distress but does report some abdominal pain.. Abdomen: non-distended, but bloated, prior laparoscopic surgery sites are tender with ecchymotic patch in sub-umbilical area. good bowel sounds. No rigidity or guarding, no palpable masses. Labs: reviewed. Imaging: reviewed. Impression: -- Symptomatic gallstones with Cholecystectomy in [facility], with persistent upper abdominal pain with worsening cholestatic liver panel, intra-operative cholangiogram showed CBD stones, was transferred to [facility], had ERCP with Sphi ncterotomy, balloon sweeps, removal of stones and sludge from GB, suspected distal stricture s/p CBD stent. currently slow improvement of Liver panel and persistent abdominal pain, s/p CT abdomen -- currently being treated for sepsis/ suspected cholangitis and mild pancreatitis. Recommendations: -- Patient and her family are educated about the test results, possible differential diagnoses and All questions answered. -- Electrolyte correction as per primary team. Closely monitor electrolytes. -- Advanced diet to diabetic regular consistency diet as tolerated. -- COntinue IV hydration for today with close monitoring of fluid status. -- Monitor CBC, Liver panel every 12 hours and if improving liver panel to consider switching IV antibiotics to oral to complete total 7 - 10 days course. -- Closely monitor clinical status. -- Depending on clinical status to stop IV fluids tomorrow. -- Needs elective ERCP for stent removal. Plan of care discussed with patient and primary team. Patient verbalized understanding and agreed with the plan. VS, I&O, 24H, Fishbone Vital Signs/I&O Vital Signs Date Time Temp Pulse Resp B/P (MAP) Pulse Ox O2 Delivery O2 Flow Rate FiO2 06/19/19 20:48 118/63 06/19/19 19:07 16 06/19/19 18:31 Room Air 06/19/19 18:00 98.6 92 98 06/16/19 13:15 2 I&O- Last 24 Hours up to 6 AM 1/28/20 06:00 Intake Total 3790 ml Output Total 400 ml Balance 3390 ml Laboratory Data 24H LABS Laboratory Tests 2 06/19/19 05:28: Nucleated Red Blood Cells % (auto) 0.2H, Anion Gap 5L, Glomerular Filtration Rate > 60.0, Calcium Level 8.0L, Magnesium Level 1.9, Total Bilirubin 3.2H, Aspartate Amino Transf (AST/SGOT) 56H, Alanine Aminotransferase (ALT/SGPT) 90H, Alkaline Phosphatase 166H, Total Protein 5.6L, Albumin 2.1L, Albumin/Globulin Ratio 0.60L 06/19/19 15:02: Nucleated Red Blood Cells % (auto) 0.0, Anion Gap 5L, Glomerular Filtration Rate > 60.0, Calcium Level 8.1L, Total Bilirubin 3.1H, Aspartate Amino Transf ( T/SGOT) 59H, Alanine Aminotransferase (ALT/SGPT) 85H, Alkaline Phosphatase 178H, Total Protein 5.0L, Albumin 2.1L, Albumin/Globulin Ratio 0.72L, Immature Granulocyte % (Auto) 1.5, Neutrophils (%) (Auto) 82.6H, Lymphocytes (%) (Auto) 10.0L, Monocytes (%) (Auto) 4.8, Eosinophils (%) (Auto) 0.9, Basophils (%) (Auto) 0.2, Neutrophils # (Auto) 8.8H, Lymphocytes # (Auto) 1.1L, Monocytes # (Auto) 0.5, Eosinophils # (Auto) 0.1, Basophils # (Auto) 0.0, Direct Bilirubin 2.6H CBC/BMP Laboratory Tests 06/19/19 05:28 06/19/19 15:02 FRANTZ SENA MD Jun 19, 2019 22:37
[2019-06-20] MEDS: KCL 40MEQ in NS 1000ML 1,000 ML IV SCH ×2 (02:37→13:06)
[2019-06-20] MEDS: PERCOCET 5MG/325MG TAB PO PRN (02:42)
[2019-06-20] MEDS: PIPERACILLIN/TAZOBACTAM SOD 3.375 GM in D5W MINI-BAG PLUS 50 ML IV SCH ×2 (05:53→10:57)
[2019-06-20 06:00] VITALS: BP 116/59
[2019-06-20 06:30] LABS: HEMOGLOBIN 9.2 g/dl (12.0-15.5); MEAN CORPUSCULAR HEMOGLOBIN 28.9 pg (27.0-33.0); MEAN CORPUSCULAR HGB CONC 31.7 g/dl (32.0-36.5); MEAN CORPUSCULAR VOLUME 91.2 fl (80.0-96.0); PLATELET COUNT, AUTOMATED 153 10^3/uL (150-450); RED BLOOD COUNT 3.18 10^6/uL (4.00-5.40); WHITE BLOOD COUNT 10.6 10^3/uL (4.0-10.0)
[2019-06-20 06:49] LABS: ERYTHROCYTE SEDIMENTATION RATE 81 mm/hr (0-30)
[2019-06-20 07:03] LABS: ALBUMIN 1.9 GM/DL (3.2-5.2); ALT/SGPT 71 U/L (12-78); BILIRUBIN,TOTAL 2.6 MG/DL (0.2-1.0); BLOOD UREA NITROGEN 4 MG/DL (7-18); CALCIUM LEVEL 8.4 MG/DL (8.8-10.2); CARBON DIOXIDE LEVEL 34 MEQ/L (21-32); CHLORIDE LEVEL 100 MEQ/L (98-107); CREATININE FOR GFR 0.59 MG/DL (0.55-1.30); GLOMERULAR FILTRATION RATE > 60.0 (>39); GLUCOSE, FASTING 158 MG/DL (70-100); POTASSIUM SERUM 3.2 MEQ/L (3.5-5.1); SODIUM LEVEL 136 MEQ/L (136-145); TOTAL PROTEIN 5.6 GM/DL (6.4-8.2)
--- NOTE | 2019-06-20 10:36 | IPNPDOC ---
Text Note Date of Service The patient was seen on 06/20/19. NOTE SUBJECTIVE: Patient was seen at bedside today in the presence of her daughter. She had no acute events overnight. Pt has not had any nausea or vomiting on her consistent carbohydrate diet. Her pain has been well controlled on oxycodone/acetaminophen. She and her daughter stated that she has taken Toradol in the past with good control of pain. She has not passed stool in 48 hours. She has been ambulating regularly. She denies chest pain, dyspnea, cough, and difficulty urinating. OBJECTIVE: VITALS: Please see below. GENERAL: Pt appears stated age and is sitting in bed in no acute distress. HEENT: Normocephalic, atraumatic. CARDIOVASCULAR: Regular rhythm. Tachycardic. Systolic crescendo decrescendo murmur auscultated. No rubs or gallops. PULMONARY: Clear to auscultation b/l. No wheezes, rales, or rhonchi. ABDOMEN: Laparoscopic incision wounds (3) present, covered with transparent bandaging, no notable erythema or drainage. Lower abdominal bruising present bilaterally and diffusely. No rashes or bumps. Abdomen diffusely distended, less so than yesterday. Bowel sounds present in all 4 quadrants. Tympany present in bilateral upper quadrants. No tympany in right lower quadrant. No tenderness in any of the 4 quadrants. No perceptible organomegaly. EXTREMITIES: No peripheral edema. PSYCHIATRIC: Pt is calm and cooperative. Full affect. Pt answers questions appr opriately. ASSESSMENT: Pt is a 78-year-old white female with a significant past medical history of hypertension, diabetes mellitus type 2, hypothyroidism, hyperlipidemia, and glaucoma who presented to [facility] as a direct admit s/p laparoscopic cholecystectomy for an ERCP and has been admitted for evaluation and treatment of continuing abdominal pain. PLAN: 1. Common bile duct stones/sludge with acute cholangitis - S/p laparoscopic cholecystectomy 06/13/2019 at [facility] (POD #7), ERCP with stenting by Dr. Franco 06/16/2019 at [facility] (POD #4) - Initially had epigastric abdominal pain radiating to left upper and lower quadrants of the abdomen after ERCP. - Today is day 4/7-10 of piperacillin/tazobactam treatment with exact duration determined by GI service. She will be transitioned to oral antibiotics. - Upon discharge, pt will require GI follow-up outpatient in 4-6 weeks as well as repeat ERCP for stent removal in 3 months. - Continue to monitor for diet intolerance. Discontinue oxycodone/acetaminophen and start PRN Ketoralac for for non-opioid pain management. Start senna for possible opioid-induced constipation. 2. Pancreatitis secondary to ERCP - Initially had epigastric abdominal pain radiating to left upper and lower quadrants of the abdomen after ERCP. - Discontinue IV fluids at this time and encourage adequate oral hydration. See pain management above. - Continue to monitor resolution. 3. Anemia of chronic disease - Continue to monitor CBC. 4. Hypokalemia - Low but improved at 3.2 this morning. Complete current IV potassium bag and recheck tomorrow. 5. Elevated transaminases, resolving - Trending down, continue to monitor q12h liver profile for another 24-48 hours. 6. Hyperbilirubinemia, resolving - Trending down, continue to monitor q12h liver profile for another 24-48 hours. 7. Diabetes mellitus type 2 - Fasting glucose 158 this morning. - Continue sliding scale insulin. 8. Hypothyroidism - Continue home levothyroxine. 9. Hypertension - Continue home amlodipine, chlorothiazide, quinapril. 10. Glaucoma - Defer to outpatient management. 11. Crescendo decrescendo murmur, likely chronic aortic sclerosis/stenosis - Pt states that she has never been told that she has a murmur by her primary care physician. However, this is unlikely to be an acute development. - Defer to outpatient management. 12. DVT prophylaxis: TEDs DISPOSITION: Discharge in 24-48 hours if tolerating diet, pain continues to improve, and potassium normalizes on PO supplementation. VS,Fishbone, I+O VS, Fishbone, I+O Laboratory Tests 06/19/19 15:02 06/20/19 06:11 Vital Signs Date Time Temp Pulse Resp B/P (MAP) Pulse Ox O2 Delivery O2 Flow Rate FiO2 06/20/19 06:00 96.7 91 16 116/59 (78) 92 Room Air 06/16/19 13:15 2 I&O- Last 24 Hours up to 6 AM 06/20/19 06:00 Intake Total 1850 ml Output Total 0 ml Balance 1850 ml GME ATTESTATION GME ATTESTATION My faculty preceptor for this patient encounter was physically present during the encounter and was fully available. All aspects of the patient interview, examination, medical decision making process, and medical care plan development were reviewed and approved by the faculty preceptor. The faculty preceptor is aware and concurs with the plan as stated in the body of this note and will attest to such by his/her cosignature. ATTENDING NOTE I personally saw and evaluated the patient. I agree with the findings and the plan of care documented above in the resident's note. STEPHANI GIPSON OMS-III Jun 20, 2019 07:42 HERNANDO RUIZ MD Jun 21, 2019 13:26
[2019-06-20] MEDS: hydroCHLOROthiazide 25 MG TAB PO SCH (10:55)
[2019-06-20] MEDS: MULTIVITAMINS/MINERALS THERAP 1 TAB PO SCH (10:55)
[2019-06-20] MEDS: FERROUS GLUCONATE 324 MG TAB PO SCH (10:55)
[2019-06-20] MEDS: amLODIPine 5 MG TAB PO SCH (10:56)
[2019-06-20 11:42] VITALS: BP 116/59
[2019-06-20 12:46] LABS: BLOOD UREA NITROGEN 5 MG/DL (7-18); CALCIUM LEVEL 8.6 MG/DL (8.8-10.2); CARBON DIOXIDE LEVEL 31 MEQ/L (21-32); CHLORIDE LEVEL 98 MEQ/L (98-107); CREATININE FOR GFR 0.69 MG/DL (0.55-1.30); GLOMERULAR FILTRATION RATE > 60.0 (>39); GLUCOSE, FASTING 210 MG/DL (70-100); POTASSIUM SERUM 3.4 MEQ/L (3.5-5.1); SODIUM LEVEL 135 MEQ/L (136-145)
[2019-06-20 14:00] VITALS: BP 139/69
[2019-06-20] MEDS: SIMETHICONE 80 MG CHEW TAB PO PRN (14:46)
[2019-06-20] MEDS: IBUPROFEN 600 MG TAB PO PRN ×2 (14:48→16:10)
[2019-06-20 15:18] VITALS: BP 139/69
[2019-06-20 21:00] VITALS: BP 139/69
[2019-06-20] MEDS: AUGMENTIN 500 MG TAB PO SCH (21:01)
[2019-06-20] MEDS: SENNA 8.6 MG TAB (SENOKOT) PO SCH (21:01)
[2019-06-20] MEDS: LEVOTHYROXINE 88MCG TABLET (0.088 MG) PO SCH (21:01)
[2019-06-20] MEDS: ROSUVASTATIN 10 MG TAB (CRESTOR) PO SCH (21:01)
[2019-06-20] MEDS: LATANOPROST 0.005% OPHTH SOLN 2.5 ML OU SCH (21:02)
[2019-06-20] MEDS: QUINAPRIL 20 MG TAB PO SCH (21:02)
[2019-06-20 22:00] VITALS: BP 143/69
[2019-06-21] MEDS: IBUPROFEN 600 MG TAB PO PRN (02:29)
[2019-06-21 06:00] VITALS: BP 144/69
[2019-06-21 06:15] LABS: HEMATOCRIT 27.3 % (36.0-47.0); MEAN CORPUSCULAR HEMOGLOBIN 29.5 pg (27.0-33.0); MEAN CORPUSCULAR VOLUME 89.5 fl (80.0-96.0); PLATELET COUNT, AUTOMATED 179 10^3/uL (150-450); RED BLOOD COUNT 3.05 10^6/uL (4.00-5.40); WHITE BLOOD COUNT 8.6 10^3/uL (4.0-10.0)
[2019-06-21 06:45] LABS: ALBUMIN 1.8 GM/DL (3.2-5.2); ALT/SGPT 63 U/L (12-78); BILIRUBIN,TOTAL 1.9 MG/DL (0.2-1.0); BLOOD UREA NITROGEN 5 MG/DL (7-18); CALCIUM LEVEL 8.3 MG/DL (8.8-10.2); CARBON DIOXIDE LEVEL 30 MEQ/L (21-32); CHLORIDE LEVEL 101 MEQ/L (98-107); CREATININE FOR GFR 0.65 MG/DL (0.55-1.30); GLOMERULAR FILTRATION RATE > 60.0 (>39); GLUCOSE, FASTING 211 MG/DL (70-100); POTASSIUM SERUM 3.1 MEQ/L (3.5-5.1); SODIUM LEVEL 138 MEQ/L (136-145); TOTAL PROTEIN 5.7 GM/DL (6.4-8.2)
[2019-06-21] MEDS: MULTIVITAMINS/MINERALS THERAP 1 TAB PO SCH (09:06)
[2019-06-21] MEDS: FERROUS GLUCONATE 324 MG TAB PO SCH (09:06)
[2019-06-21 09:07] VITALS: BP 141/69
[2019-06-21] MEDS: AUGMENTIN 500 MG TAB PO SCH (09:07)
[2019-06-21] MEDS: amLODIPine 5 MG TAB PO SCH (09:07)
[2019-06-21] MEDS: SENNA 8.6 MG TAB (SENOKOT) PO SCH (09:08)
[2019-06-21] MEDS ORDERED: BISACODYL 5 MG TAB PO PRN (09:30)
--- NOTE | 2019-06-21 10:07 | DS.PDOC ---
Discharge Summary General Date of Admission Jun 15, 2019 at 12:48 Date of Discharge Jun 21, 2019 Attending Physician: HERNANDO RUIZ MD Specialist/Consultants Involve: RAVI FRANCO MD Discharge Summary PROCEDURES PERFORMED DURING STAY: Endoscopic retrograde cholangiopancreatography ADMITTING DIAGNOSES: 1. Pancreatic duct stones 2. Hypertension 3. Diabetes mellitus type 2 4. Hypothyroidism 5. Glaucoma DISCHARGE DIAGNOSES: 1. Bile duct stones/sludge with acute cholangitis 2. Pancreatitis secondary to ERCP 3. Hypokalemia 4. Anemia of chronic disease 5. Elevated transaminases secondary to bile duct stones 6. Hyperbilirubinemia secondary to bile duct stones 7. Crescendo decrescendo systolic murmur, likely chronic aortic sclerosis/stenosis 8. Chronic hypertension 9. Diabetes mellitus type 2 10. Hypothyroidism 11. Glaucoma COMPLICATIONS/CHIEF COMPLAINT: Obstructing Stone Pancreatic Duct. HISTORY OF PRESENT ILLNESS: Patient is a 78-year-old female who presented to [facility] as a direct transfer from [facility] for GI consultation and ERCP. Pt's original complaint to [facility] was abdominal pain. She was found to have cholecystitis and a laparoscopic cholecystectomy was performed at that facility. Multiple pancreatic duct stones were discovered during the cholecystectomy. On presentation to [facility], her mild abdominal pain was rated 3/10 with focal pain at her surgical sites. She denied chest pain, shortness of breath, nausea, vomiting, and diarrhea. HOSPITAL COURSE: Scaleman Ravi Franco MD was consulted and he performed an ERCP. Pt tolerated this procedure well, and her abdominal pain and abnormal liver function testing improved over the course of her hospital stay. She received 5 days of piperacillin/tazobactam and will continue oral on an outpatient basis, managed by the GI service. Pt was found to have pancreatitis secondary to her ERCP and was treated with pain management and fluid resuscitation. She was found to be hypokalemic, which was corrected by IV and oral supplementation. She was also found to have anemia of chronic disease. A crescendo decrescendo systolic murmur best heard at the second left intercostal space at the sternal border was discovered. Pt stated that the murmur was new to her, though it is likely chronic and due to aortic sclerosis/stenosis. Management of the murmur is deferred to outpatient workup. Pt was stable at time of discharge. DISCHARGE MEDICATIONS: Please see below. ALLERGIES: Please see below. PHYSICAL EXAMINATION ON DISCHARGE: VITALS: Please see below. GENERAL: Pt appears stated age and is sitting in bed in no acute distress. HEENT: Normocephalic, atraumatic. CARDIOVASCULAR: Regular rhythm. Tachycardic. Systolic crescendo decrescendo murmur best auscultated at the secondary costal space, sternal border. No rubs or gallops. PULMONARY: Clear to auscultation b/l. No wheezes, rales, or rhonchi. ABDOMEN: Laparoscopic incision wounds (3) present, covered with transparent bandaging, no notable erythema or drainage. Lower abdominal bruising present bilaterally and diffusely. No rashes or bumps. Abdomen slightly distended. Bowel sounds present in all 4 quadrants. Tympany present in bilateral upper quadrants. No tenderness in any of the 4 quadrants. No perceptible organomegaly. EXTREMITIES: No peripheral edema. PSYCHIATRIC: Pt is calm and cooperative. Full affect. Pt answers questions appropriately. LABORATORY DATA: Please see below. IMAGIN. Abdominal ultrasound, limited, from report: "Limited examination due to overlying bowel gas. Status post cholecystectomy." 2. ERCP, from report: "Fluoroscopic guidance provided to Dr. Franco of the gastroenterology division. Total of 66 images were provided. The endoscope was present and wire probe and catheter into the common duct and the right and left intrahepatic ducts. Contrast injected. Some air bubbles are seen on one of the injections later in the exam but there were a few lucencies in the common duct earlier that suggested possible retained stones. Catheter with balloon was then placed and the balloon inflated, catheter pulled back. Final image as are those of an indwelling stent placed in that common bile duct. Fluoroscopy time [address] abdomen and pelvis with IV contrast and bowel contrast, from report: "There are postsurgical changes in the right upper quadrant abdominal wall as described. There is a common biliary duct stent. There is a small volume of fluid and a few bubbles of air in the gallbladder fossa. There is a small left pleural effusion. There is mild inflammation surrounding the pancreas and thickening of left Gerota's fascia compatible with mild pancreatitis. There is no ascites. No pneumoperitoneum. No bowel distension or obstruction. Hysterectomy." PROGNOSIS: Fair ACTIVITY: As tolerated DIET: Consistent carbohydrate DISPOSITION: Discharge home DISCHARGE INSTRUCTIONS: 1. Complete antibiotics course as directed by GI service. 2. Continue oral potassium supplementation. 3. Follow up with primary care physician within 7 days. 4. Follow-up with GI service outpatient in 4-6 weeks. Repeat ERCP for stent removal in 3 months. 5. Return to emergency department in case of worsening abdominal pain, nausea, vomiting. ITEMS TO FOLLOWUP ON ON OUTPATIENT: 1. Cholangitis 2. Pancreatitis 3. Hypokalemia 4. Crescendo decrescendo systolic murmur 5. Anemia of chronic disease 6. Repeat ERCP for stent removal DISCHARGE CONDITION: Stable TIME SPENT ON DISCHARGE: 35 minutes. Vital Signs/I&Os Vital Signs Date Time Temp Pulse Resp B/P (MAP) Pulse Ox O2 Delivery O2 Flow Rate FiO2 06/21/19 09:07 89 141/69 06/21/19 06:00 97.4 20 97 06/20/19 21:00 Room Air 06/16/19 13:15 2 I&O- Last 24 Hours up to 6 AM 06/21/19 06:00 Intake Total 2550 ml Output Total 1650 ml Balance 900 ml Laboratory Data Labs 24H Laboratory Tests 2 06/20/19 11:57: Anion Gap 6L, Glomerular Filtration Rate > 60.0, Calcium Level 8.6L 06/21/19 05:46: Anion Gap 7L, Glomerular Filtration Rate > 60.0, Calcium Level 8.3L, Nucleated Red Blood Cells % (auto) 0.0, Magnesium Level 2.0, Total Bilirubin 1.9H, Asparta te Amino Transf (AST/SGOT) 48H, Alanine Aminotransferase (ALT/SGPT) 63, Alkaline Phosphatase 248H, Total Protein 5.7L, Albumin 1.8L, Albumin/Globulin Ratio 0.46L CBC/BMP Laboratory Tests 06/20/19 11:57 06/21/19 05:46 Discharge Medications Scheduled Amlodipine Besylate (Amlodipine Besylate) 5 Mg Tablet, 5 MG PO DAILY, (Reported) Amoxicillin/Potassium Clav (Amox-Clav 500-125 mg Tablet) 1 Each Tablet, 500 MG PO BID Aspirin (Aspir 81) 81 Mg Tablet.dr, 81 MG PO 3XW, (Reported) MON/WED/FRI WITH DINNER Bimatoprost (Lumigan) 0.01% 2.5ML Drops, 1 DROP OU QHS, (Reported) Calcium Carbonate/Vitamin D3 (Calcium 600-Vit D3 800 Tablet) 1 Each Tablet, 1 TAB PO DAILY, (Reported) TAKES AT 1600 Ferrous Gluconate (Ferrous Gluconate) 324 Mg Tablet, 324 MG PO DAILY, (Reported) Hydrochlorothiazide (Hydrochlorothiazide) 25 Mg Tablet, 25 MG PO DAILY, (Repo rted) Levothyroxine Sodium (Synthroid) 88 Mcg Tablet, 88 MCG PO QHS, (Reported) Multivitamins (Thera M Plus Tablet) 1 Each Tablet, 1 TAB PO DAILY, (Reported) TAKES AT 1600 Potassium Chloride (Potassium Chloride) 20 Meq Tablet.er, 1 TAB PO BID Quinapril HCl (Quinapril HCl) 40 Mg Tablet, 40 MG PO QHS, (Reported) Rosuvastatin Calcium (Rosuvastatin Calcium) 40 Mg Tablet, 40 MG PO QHS, (Reported) Scheduled PRN Ketoconazole (Ketoconazole) 15 Gm Cream..g., 1 APLCT TOP DAILY PRN for ITCHING, (Reported) APPLY TO GROIN Tacrolimus (Protopic) 100 Gm Oint...g., 1 APLCT TOP DAILY PRN for FLARE, (Reported) APPLY TO NOSE/FOREHEAD Allergies Coded Allergies: atorvastatin (Verified Adverse Reaction, Intermediate, INCREASED LIVER EN ZYMES, GI UPSET, 06/15/19) GME ATTESTATION GME ATTESTATION My faculty preceptor for this patient encounter was physically present during the encounter and was fully available. All aspects of the patient interview, examination, medical decision making process, and medical care plan development were reviewed and approved by the faculty preceptor. The faculty preceptor is aware and concurs with the plan as stated in the body of this note and will attest to such by his/her cosignature. ATTENDING NOTE I personally saw and evaluated the patient. I agree with the findings and the plan of care documented above in the resident's note. I personally spent 35 minutes and counselling the patient and coordinating her discharge. STEPHANI GIPSON OMS-III Jun 21, 2019 10:07 HERNANDO RUIZ MD Jun 22, 2019 12:10
[2019-06-21] MEDS ORDERED: POTA1TAB14 PO (10:34)
[2019-06-21] MEDS ORDERED: AMOX500T2 PO (10:34)
[2019-06-21] MEDS: ACETAMINOPHEN TAB 650MG DOSE (2X325MG) PO PRN (13:20)
== END 2019-06-21 13:27 | disposition home or self-care (01) | DRG 444 ==
LOC: M MSPAV 12:48
PROVIDERS: ADMIT Internal Medicine; ATTEND Internal Medicine Nephrology
PROC: 0F798ZZ Dilation of Common Bile Duct, Via Natural or Artificial Opening Endoscopic (ICD-10-PCS; 2019-06-16)
PROC: 0FC98ZZ Extirpation of Matter from Common Bile Duct, Via Natural or Artificial Opening Endoscopic (ICD-10-PCS; principal; 2019-06-16 10:30)
DX: K80.33 Calculus of bile duct with acute cholangitis with obstruction (principal); K85.90 Acute pancreatitis without necrosis or infection, unspecified; I10 Essential (primary) hypertension; E11.9 Type 2 diabetes mellitus without complications; E03.9 Hypothyroidism, unspecified; E78.5 Hyperlipidemia, unspecified; H40.9 Unspecified glaucoma; Z79.82 Long term (current) use of aspirin; Z88.8 Allergy status to other drugs, medicaments and biological substances; Z79.899 Other long term (current) drug therapy; Z90.49 Acquired absence of other specified parts of digestive tract; E87.6 Hypokalemia; R74.0 Nonspecific elevation of levels of transaminase and lactic acid dehydrogenase [LDH]; D50.9 Iron deficiency anemia, unspecified; E80.6 Other disorders of bilirubin metabolism; I70.0 Atherosclerosis of aorta

== ENCOUNTER → 2019-11-05 | Outpatient (CLI) | payer MEDICARE, BC ==
[~2019-11-05] MED LIST changes: +AMOX500T2 PO; +JANU50TA25 PO; +POTA1TAB14 PO
== END ==
LOC: M LABSMTC 09:36
PROVIDERS: ATTEND Anesthesiology
DX: Z03.818 Encounter for observation for suspected exposure to other biological agents ruled out (principal); Z11.59 Encounter for screening for other viral diseases
CPT/HCPCS: C9803; U0003

== ENCOUNTER 2019-11-08 05:57 | Day surgery (SDC) | payer MEDICARE, BC ==
[~2019-11-08] VITALS: Ht 157.5 cm; Wt 68.9 kg
[2019-11-08] MEDS ORDERED: LIDOCAINE 1% MDV 20ML VIAL SQ PRN (06:00)
[2019-11-08] MEDS ORDERED: fentaNYL 100 MCG/2 ML INJECTION (J3010) As Ordered ONE (06:45)
[2019-11-08] MEDS ORDERED: MIDAZOLAM INJ 2MG/2ML VIAL (J2250 PER 1MG) As Ordered ONE (06:45)
[2019-11-08] MEDS ORDERED: PHENYLephrine HCL 500 MCG/5 ML (100MCG/ML) SYRINGE (J2370) As Ordered ONE (06:46)
[2019-11-08] MEDS ORDERED: propofoL 200 MG/20 ML VIAL As Ordered ONE (06:46)
[2019-11-08] MEDS ORDERED: ROCURONIUM BROMIDE 50 MG/5 ML VIAL As Ordered ONE (06:46)
[2019-11-08] MEDS ORDERED: LIDOCAINE 2% 100MG/5ML SDV (FOR ANES.) As Ordered ONE (06:46)
[2019-11-08] MEDS ORDERED: SUGAMMADEX SODIUM 500 MG/5 ML VIAL (BRIDION) As Ordered ONE (06:46)
[2019-11-08] MEDS ORDERED: dexameTHASONE 4 MG/ML 1ML VIAL (J1100 PER 1MG) As Ordered ONE (06:46)
[2019-11-08] MEDS ORDERED: ONDANSETRON 4MG/2ML VIAL As Ordered ONE (06:46)
[2019-11-08] MEDS ORDERED: ePHEDrine SULFATE 25 MG/5 ML(5MG/ML) SYRINGE As Ordered ONE (06:46)
[2019-11-08] MEDS ORDERED: NS 1,000 ML IV ONE (07:00)
[2019-11-08] MEDS ORDERED: LR 1,000 ML IV ONE (07:00)
[2019-11-08] MEDS ORDERED: ISOVUE-300 61% 50ML VIAL As Ordered ONE (07:17)
[2019-11-08] MEDS ORDERED: SUCCINYLCHOLINE 100 MG/5 ML SYRINGE (J0330) As Ordered ONE (07:58)
[2019-11-08] MEDS ORDERED: HYDROmorphone HCL 2 MG/ML 1ML VIAL (J1170) As Ordered ONE (08:11)
[2019-11-08] MEDS ORDERED: NALOXONE INJ 0.4MG/1ML VIAL (J2310 PER 1MG) As Ordered ONE (08:41)
--- NOTE | 2019-11-08 08:51 | ROOR ---
Patient Name: Alka Schmitz Procedure Date: 11/08/2019 7:44 AM Date of : 1940 Age: 79 Room: [facility] Gender: Female Note Status: Finalized Procedure: ERCP Indications: Bile duct stone(s), Common bile duct stricture Providers: Ravi Franco MD Referring MD: 1. No Referring Physician 1. No Referring Physician, Admin. Requesting Provider: Medicines: Monitored Anesthesia Care Complications: No immediate complications. Procedure: Pre-Anesthesia Assessment: - Prior to the procedure, a History and Physical was performed, and patient medications and allergies were reviewed. The patient is competent. The risks and benefits of the procedure and the sedation options and risks were discussed with the patient. All questions were answered and informed consent was obtained. Patient identification and proposed procedure were verified by the physician, the nurse and the anesthesiologist in the procedure room. Mental Status Examination: alert and oriented. Prophylactic Antibiotics: The patient does not require prophylactic antibiotics. Prior Anticoagulants: The patient has taken no previous anticoagulant or antiplatelet agents. ASA Grade Assessment: II - A patient with mild systemic disease. After reviewing the risks and benefits, the patient was deemed in satisfactory condition to undergo the procedure. The anesthesia plan was to use monitored anesthesia care (MAC). Immediately prior to administration of medications, the patient was re-assessed for adequacy to receive sedatives. The heart rate, respiratory rate, oxygen saturations, blood pressure, adequacy of pulmonary ventilation, and response to care were monitored throughout the procedure. The physical status of the patient was re-assessed after the procedure. The Duodenoscope was introduced through the mouth, and advanced to the duodenum and used to inject contrast into the bile duct. The ERCP was accomplished without difficulty. The patient tolerated the procedure well. Findings: A biliary stent was visible on the cage clerk film. The esophagus was successfully intubated under direct vision without detailed examination of the pharynx, larynx, and associated structures, and upper GI tract. The upper GI tract was grossly normal. One plastic stent originating in the biliary tree was emerging from the major papilla. A biliary sphincterotomy had been performed. The sphincterotomy appeared open. One stent was removed from the biliary tree using a snare. A 0.035 inch x 260 cm straight Hydra Jagwire was passed into the biliary tree. The short-nosed traction sphincterotome was passed over the guidewire and the bile duct was then deeply cannulated. Contrast was injected. The lower third of the main bile duct contained a single mild stenosis. The biliary tree was swept with a 9 mm balloon starting at the bifurcation. Sludge was swept from the duct. Cells for cytology were obtained by brushing in the lower third of the main bile duct. Occlusion cholangiogram at the end of the procedure did not show any residual filling defects. Pancreatic duct was neither cannulated nor opacified. Impression: - One stent from the biliary tree was seen in the major papilla. - Prior biliary sphincterotomy appeared open. - A single mild biliary stricture was found in the lower third of the main bile duct. The stricture was indeterminate. - One stent was removed from the biliary tree. - The biliary tree was swept and sludge was found. - Cells for cytology obtained in the lower third of the main duct. Recommendation: - The patient will be observed post-procedure, until all discharge criteria are met. - Patient has a contact number available for emergencies. The signs and symptoms of potential delayed complications were discussed with the patient. Return to normal activities tomorrow. Written discharge instructions were provided to the patient. - Full liquid diet today, then advance as tolerated to resume previous diet. - Continue present medications. - Await cytology results. - Telephone GI clinic for pathology results in 2 weeks. - Telephone GI clinic if symptomatic. - Return to primary care physician. Ravi Franco MD Ravi Franco MD 11/08/2019 8:51:04 AM Electronically signed by Ravi Franco MD Number of Addenda: 0 Note Initiated On: 11/08/2019 7:44 AM Estimated Blood Loss: Estimated blood loss was minimal.
[2019-11-08] MEDS ORDERED: PERCOCET 5MG/325MG TAB PO PRN (09:15)
[2019-11-08] MEDS ORDERED: ONDANSETRON 4MG/2ML VIAL IV PRN (09:15)
[2019-11-08] MEDS ORDERED: fentaNYL 100 MCG/2 ML INJECTION (J3010) IV PRN (09:15)
[2019-11-08] MEDS ORDERED: LR 1,000 ML IV SCH (09:15)
[2019-11-08] MEDS ORDERED: MEPERIDINE INJ 25 MG/ML VIAL (J2175) IV PRN (09:15)
[2019-11-08 09:30] VITALS: BP 122/60
--- NOTE | 2019-11-08 10:20 | REP ---
ERCP: 54 views. HISTORY: Choledocholithiasis. ERCP in the OR. 1 minute 8 seconds of fluoroscopy time was utilized. FINDINGS: A sequence of 54 last image hold fluoroscopically obtained spot radiographs of the right upper quadrant document endoscopic cannulation, contrast injection, balloon catheter manipulation, and stenting of the common bile duct. Post cholecystectomy clips are seen. Electronically Signed by Tony Alvarez MD 11/08/2019 01:32 P
== END 2019-11-08 10:20 | disposition home or self-care (01) ==
LOC: M SDC 05:57
PROVIDERS: ATTEND Internal Medicine Gastroenterology
DX: K80.51 Calculus of bile duct without cholangitis or cholecystitis with obstruction (principal); Z96.89 Presence of other specified functional implants; Z46.59 Encounter for fitting and adjustment of other gastrointestinal appliance and device; I10 Essential (primary) hypertension; E03.9 Hypothyroidism, unspecified; E11.9 Type 2 diabetes mellitus without complications; E78.49 Other hyperlipidemia; Z88.8 Allergy status to other drugs, medicaments and biological substances; Z79.899 Other long term (current) drug therapy
CPT/HCPCS: 43264; 43275; 74330; 88104; J0330; J1100; J1170; J2250; J2310; J2370; J2405; J3010; Q9967